=== PATIENT | female | born 1935 | race Caucasian/White ===

== ENCOUNTER 2016-02-17 08:52 | Outpatient (RCR) | payer MEDICARE, OTHER ==
[~2016-02-17 08:52] MED LIST: AC500T PO; ACET-2267 PO; ACHD5005 PO; ACID1GRA PO; ALPR0.2550; AMLO5TAB2 PO; ASP325T PO; ASP81CT PO; ASPI-84; ASPI-983 PO; ATOR40TA PO; ATOR40TA70 PO; AZIT250T5 PO; BETH25TA PO; CLIN300C3 PO; CLON0.5T3 PO; CLOP75TA; CLOP75TA PO; CLOP75TA28 PO; CLOP75TA69 PO; FERR325T24 PO; FRSM40T PO; FURO-125 PO; FURO20TA4 PO; FURO40TA4 PO; HCTZ12.5T PO; HYDR-3583 PO; HYDR-3857 PO; HYDR12.570; HYDR1TAB66 PO; KCL10CCR PO; KCL20TCR; LOSA50TA36 PO; METO50TA2 PO; METOPROLOL; METR500T PO; METR500T21 PO; MTP50T; MTP50T PO; ONDA-42 SL; PANT40TA3 PO; POTA10CA43 PO; POTA99TA7 PO; PRAV80TA2 PO; RANI150T11 PO; RANI150T90 PO; RANI75TA30 PO; RNT150T PO; ROSU20TA14; SERT25TA PO; SERT25TA5 PO; SIMV40TA4 PO; SIMVASTATIN; SUCR1ORA5 PO; SUCR1TAB PO; TRAM-42 PO; TRAM50TA2 PO
[2016-02-17 09:08] LABS: BASOPHILS % (AUTO) 0 % (0-10); EOSINOPHILS # (AUTO) 0.3 10^3/uL (0.0-0.3); EOSINOPHILS % (AUTO) 5 % (0-10); LYMPHOCYTES % (AUTO) 15 % (12-44); MEAN CORPUSCULAR HEMOGLOBIN 27 PG (25-34); MEAN CORPUSCULAR HGB CONC 32 G/DL (32-36); MEAN CORPUSCULAR VOLUME 83 FL (80-99); MEAN PLATELET VOLUME 9.4 FL (7.4-10.4); MONOCYTES # (AUTO) 0.7 X 10^3 (0.0-1.0); MONOCYTES % (AUTO) 10 % (0-12); NEUTROPHILS # (AUTO) 4.8 X 10^3 (1.8-7.8); NEUTROPHILS % (AUTO) 70 % (42-75); PLATELET COUNT 249 10^3/uL (130-400); RED BLOOD COUNT 4.32 10^6/uL (4.35-5.85); RED CELL DISTRIBUTION WIDTH 14.4 % (10.0-14.5); WHITE BLOOD COUNT 6.9 10^3/uL (4.3-11.0)
[2016-02-17 09:55] LABS: ALBUMIN 3.9 G/DL (3.2-4.5); BILIRUBIN,TOTAL 0.5 MG/DL (0.1-1.0); CALCIUM 9.4 MG/DL (8.5-10.1); CREATININE SERUM 1.26 MG/DL (0.60-1.30); POTASSIUM 5.1 MMOL/L (3.6-5.0); TOTAL PROTEIN 7.8 G/DL (6.4-8.2)
[2016-05-18] MEDS ORDERED: PANT40TA3 PO (11:39)
== END 2016-05-17 | disposition home or self-care (01) ==
LOC: ONC 08:52
PROVIDERS: ATTEND Internal Medicine Hematology & Oncology
DX: C18.0 Malignant neoplasm of cecum (principal); I10 Essential (primary) hypertension; I25.10 Atherosclerotic heart disease of native coronary artery without angina pectoris; E78.5 Hyperlipidemia, unspecified; Z79.899 Other long term (current) drug therapy
CPT/HCPCS: 36415; 80053; 82378; 85025; 99213

== ENCOUNTER 2016-05-18 05:50 | Outpatient (CLI) | payer MEDICARE, OTHER ==
[~2016-05-18] VITALS: Ht 157.5 cm; Wt 52.5 kg
[2016-05-18] MEDS ORDERED: PANT40TA3 PO (11:39)
== END 2016-05-18 11:44 ==
LOC: PREOP 05:50
PROVIDERS: ATTEND Surgery
DX: Z01.818 Encounter for other preprocedural examination (principal); R13.10 Dysphagia, unspecified; K22.2 Esophageal obstruction

== ENCOUNTER 2016-05-22 11:45 | Day surgery (SDC) | payer MEDICARE, OTHER ==
[~2016-05-22] VITALS: Ht 157.5 cm; Wt 52.5 kg
[2016-05-22] MEDS ORDERED: NS IV 500 ML 500 ML ONE (11:46)
--- NOTE | 2016-05-22 11:58 | Pre-Op Note & Conscious Sedat ---
Pre-Operative Progress Note H&P Reviewed The H&P was reviewed, patient examined and no changes noted. Date H&P Reviewed: May 22, 2016 Time H&P Reviewed: 11:58 Pre-Op Diagnosis: esophageal stricture Conscious Sedation Pre-Proced ASA Class: 2 Airway Mallampati Classification: ([place] appropriate class) I. II. III, IV Lungs Heart ASA score ASA 1: a normal healthy patient ASA 2: a patient with a mild systemic disease (mid diabetes, controlled hypertension, obesity ASA 3: a patient with a severe systemic disease that limits activity (angina , COPD, prior Myocardial infarction) ASA 4: a patient with an incapacitating disease that is a constant threat to life (CHF, renal failure) ASA 5: a moribund patient not expected to survive 24 hrs. (ruptured aneurysm) ASA 6: a declared brain patient whose organs are being harvested. For emergent operations, add the letter E after the classification Grade 2 Sedation Plan: Discussed options with patient/fam Note The patient is an appropriate candidate to undergo the planned procedure, sedation, and anesthesia. The patient immediately re-assessed prior to indication. JUDY ESCOBAR MD May 22, 2016 11:58 am
[2016-05-22] MEDS ORDERED: NS IV 500 ML 500 ML IV ONE (12:00)
[2016-05-22] MEDS ORDERED: FLUMAZENIL (ROMAZICON) 0.1 MG/ML 5 ML VIAL INJ PRN (12:00)
[2016-05-22] MEDS ORDERED: MIDAZOLAM 2 MG/2 ML (VERSED) VIAL IVP PRN (12:00)
[2016-05-22] MEDS ORDERED: NALOXONE 0.4 MG/ML 1 ML (NARCAN) VIAL IVP PRN (12:00)
[2016-05-22] MEDS ORDERED: fentaNYL INJECTION 100 MCG/2 ML AMP IVP PRN (12:00)
[2016-05-22 12:20] VITALS: BP 121/66
[2016-05-22] MEDS ORDERED: MIDAZOLAM 2 MG/2 ML (VERSED) VIAL ONE ×2 (12:25→12:26)
[2016-05-22] MEDS ORDERED: fentaNYL INJECTION 100 MCG/2 ML AMP ONE (12:26)
[2016-05-22] MEDS ORDERED: HURRICAINE EXT TUBE (BENZOCAINE) ONE (12:26)
--- NOTE | 2016-05-22 12:55 | Progress Note-Post Operative ---
Post-Operative Progess Note Pre-Operative Diagnosis esophageal stricture Post-Operative Diagnosis same Post-Op Procedure Note Date of Procedure: May 22, 2016 Name of Procedure: EGD with the balloon dilatation Anesthesia Type sedation JUDY ESCOBAR MD May 22, 2016 12:55 pm
--- NOTE | 2016-05-22 12:57 | Discharge Inst-Simple/Standard ---
Discharge Inst-Standard Discharge Medications New, Converted or Re-Newed RX: Other Patient Instructions/Follow Up Plan of Care/Instructions/FU: further follow-up if required Activity as Tolerated: Yes Discharge Diet: No Restrictions JUDY ESCOBAR MD May 22, 2016 12:57 pm
--- NOTE | 2016-05-22 13:10 | PROCEDURE REPORT ---
PROCEDURE PHYSICIAN: JUDY ESCOBAR DATE OF PROCEDURE: 05/22/2016 PROCEDURE: Upper GI endoscopy with balloon dilatation of esophageal stricture. SURGEON: Patric INDICATION FOR THE PROCEDURE: This lady is known to have a distal esophageal stricture requiring endoscopic balloon dilatation about 3 months ago. She returns today for further dilatation to optimize her symptom relief. Informed consent was obtained after reviewing the procedure in detail. DESCRIPTION OF PROCEDURE: She was placed in left lateral decubitus position and her vital signs were monitored. Conscious sedation was achieved using Versed and fentanyl. The flexible gastroscope was introduced down the esophagus, past stomach, into the proximal duodenum. FINDINGS: ESOPHAGUS: Quite tortuous with a smooth distal stricture. Previously noticed inflammation has resolved. The stricture was dilated to 18 mm with a balloon. Stomach and duodenum: Were normal. She tolerated the procedure well and was taken back to the nursing area in a stable condition. IMPRESSION: Balloon dilatation of esophageal stricture. Job ID: [id number] Dictated Date: 05/22/2016 12:55:18 Nurse First Assist Date: 05/22/2016 13:06:13 / neymar ERWIN
[2016-05-22 13:15] VITALS: BP 140/74
[2016-05-22] MEDS ORDERED: HURRICAINE EXT TUBE (BENZOCAINE) XX ONE (13:15)
[2016-05-22 13:45] VITALS: BP 138/74
[2016-05-22 14:05] VITALS: BP 138/74
== END 2016-05-22 14:05 | disposition home or self-care (01) ==
LOC: SDC 11:45
PROVIDERS: ATTEND Surgery
DX: K22.2 Esophageal obstruction (principal)

== ENCOUNTER 2016-08-28 12:31 | Outpatient (RCR) | payer MEDICARE, OTHER ==
[2016-06-06 13:33] LABS: BASOPHILS % (AUTO) 1 % (0-10); EOSINOPHILS # (AUTO) 0.4 10^3/uL (0.0-0.3); EOSINOPHILS % (AUTO) 6 % (0-10); LYMPHOCYTES # (AUTO) 1.2 X 10^3 (1.0-4.0); LYMPHOCYTES % (AUTO) 19 % (12-44); MEAN CORPUSCULAR HEMOGLOBIN 26 PG (25-34); MEAN CORPUSCULAR HGB CONC 32 G/DL (32-36); MEAN CORPUSCULAR VOLUME 82 FL (80-99); MEAN PLATELET VOLUME 9.6 FL (7.4-10.4); MONOCYTES # (AUTO) 0.6 X 10^3 (0.0-1.0); MONOCYTES % (AUTO) 9 % (0-12); NEUTROPHILS # (AUTO) 4.4 X 10^3 (1.8-7.8); NEUTROPHILS % (AUTO) 66 % (42-75); PLATELET COUNT 284 10^3/uL (130-400); RED BLOOD COUNT 4.67 10^6/uL (4.35-5.85); RED CELL DISTRIBUTION WIDTH 14.9 % (10.0-14.5); WHITE BLOOD COUNT 6.6 10^3/uL (4.3-11.0)
[2016-06-06 14:01] LABS: BILIRUBIN,TOTAL 0.5 MG/DL (0.1-1.0); CALCIUM 9.2 MG/DL (8.5-10.1); CREATININE SERUM 1.24 MG/DL (0.60-1.30); POTASSIUM 4.6 MMOL/L (3.6-5.0)
[2016-08-28 13:12] LABS: BASOPHILS # (AUTO) 0.1 10^3/uL (0.0-0.1); BASOPHILS % (AUTO) 1 % (0-10); EOSINOPHILS # (AUTO) 0.3 10^3/uL (0.0-0.3); EOSINOPHILS % (AUTO) 3 % (0-10); LYMPHOCYTES # (AUTO) 1.4 X 10^3 (1.0-4.0); LYMPHOCYTES % (AUTO) 15 % (12-44); MEAN CORPUSCULAR HEMOGLOBIN 27 PG (25-34); MEAN CORPUSCULAR HGB CONC 32 G/DL (32-36); MEAN CORPUSCULAR VOLUME 84 FL (80-99); MEAN PLATELET VOLUME 8.8 FL (7.4-10.4); MONOCYTES # (AUTO) 0.5 X 10^3 (0.0-1.0); MONOCYTES % (AUTO) 6 % (0-12); NEUTROPHILS # (AUTO) 6.6 X 10^3 (1.8-7.8); NEUTROPHILS % (AUTO) 75 % (42-75); PLATELET COUNT 417 10^3/uL (130-400); RED BLOOD COUNT 4.41 10^6/uL (4.35-5.85); RED CELL DISTRIBUTION WIDTH 14.7 % (10.0-14.5); WHITE BLOOD COUNT 8.8 10^3/uL (4.3-11.0)
[2016-08-28 14:06] LABS: ALBUMIN 3.6 G/DL (3.2-4.5); BILIRUBIN,TOTAL 0.3 MG/DL (0.1-1.0); CALCIUM 9.4 MG/DL (8.5-10.1); CREATININE SERUM 1.35 MG/DL (0.60-1.30); POTASSIUM 5.1 MMOL/L (3.6-5.0); TOTAL PROTEIN 8.1 G/DL (6.4-8.2)
== END 2016-09-04 | disposition home or self-care (01) ==
LOC: ONC 12:31
PROVIDERS: ATTEND Internal Medicine Hematology & Oncology
DX: C18.0 Malignant neoplasm of cecum (principal); I10 Essential (primary) hypertension; I25.10 Atherosclerotic heart disease of native coronary artery without angina pectoris; E78.5 Hyperlipidemia, unspecified; Z79.899 Other long term (current) drug therapy
CPT/HCPCS: 36415; 80053; 82378; 82728; 85025; 99213

== ENCOUNTER → 2016-09-05 | Outpatient (CLI) | payer MEDICARE, OTHER | LOC: PREOP 05:42 | PROVIDERS: ATTEND Surgery | DX: Z01.818 Encounter for other preprocedural examination (principal); C18.0 Malignant neoplasm of cecum ==

== ENCOUNTER 2016-09-07 07:58 | Day surgery (SDC) | payer MEDICARE, OTHER ==
[2016-09-07 08:00] VITALS: BP 127/60
[2016-09-07] MEDS ORDERED: FLUMAZENIL (ROMAZICON) 0.1 MG/ML 5 ML VIAL INJ PRN (08:15)
[2016-09-07] MEDS ORDERED: NALOXONE 0.4 MG/ML 1 ML (NARCAN) VIAL IVP PRN (08:15)
[2016-09-07] MEDS ORDERED: NS IV 500 ML 500 ML IV ONE (08:15)
[2016-09-07] MEDS ORDERED: NS IV 500 ML 500 ML ONE (09:06)
[2016-09-07] MEDS ORDERED: fentaNYL INJECTION 100 MCG/2 ML AMP ONE ×2 (10:07)
[2016-09-07] MEDS ORDERED: MIDAZOLAM 2 MG/2 ML (VERSED) VIAL ONE ×3 (10:07)
[2016-09-07] MEDS: fentaNYL INJECTION 100 MCG/2 ML AMP IVP PRN ×2 (10:25→10:29)
[2016-09-07] MEDS: MIDAZOLAM 2 MG/2 ML (VERSED) VIAL IVP PRN ×2 (10:28→10:31)
--- NOTE | 2016-09-07 10:48 | Conscious Sedation/ASA ---
Conscious Sedation Pre-Proced ASA Class: 2 Airway Mallampati Classification: ([place] appropriate class) I. II. III, IV Lungs Heart ASA score ASA 1: a normal healthy patient ASA 2: a patient with a mild systemic disease (mid diabetes, controlled hypertension, obesity ASA 3: a patient with a severe systemic disease that limits activity (angina , COPD, prior Myocardial infarction) ASA 4: a patient with an incapacitating disease that is a constant threat to life (CHF, renal failure) ASA 5: a moribund patient not expected to survive 24 hrs. (ruptured aneurysm) ASA 6: a declared brain patient whose organs are being harvested. For emergent operations, add the letter E after the classification Grade 1 Sedation Plan: Discussed options with patient/fam Note The patient is an appropriate candidate to undergo the planned procedure, sedation, and anesthesia. The patient immediately re-assessed prior to indication. JUDY ESCOBAR MD September 07, 2016 10:48 am
--- NOTE | 2016-09-07 10:49 | Endoscopy Procedure Report ---
Endoscopy Report Date: September 07, 2016 Preoperative Diagnosis: history of colon cancer Study Performed: Colonoscopy Procedure Instrument: Colonoscope Endo Procedure/Findings Findings 1.: Diverticulosis Recommendations: Recommendations: 1.: Colonoscopy in 2 years Copy Copies To 1: EDGAR ANNE DO Copies To 2: CHRISTA WHITAKER XAVIER M MD September 07, 2016 10:49 am
--- NOTE | 2016-09-07 10:50 | Discharge Inst-Simple/Standard ---
Discharge Inst-Standard Discharge Medications New, Converted or Re-Newed RX: Other Patient Instructions/Follow Up Plan of Care/Instructions/FU: repeat colonoscopy in 2 years Activity as Tolerated: Yes Discharge Diet: No Restrictions JUDY ESCOBAR MD September 07, 2016 10:50 am
[2016-09-07 11:05] VITALS: BP 123/58
[2016-09-07 11:35] VITALS: BP 135/68
--- NOTE | 2016-09-08 05:21 | OPERATIVE REPORT ---
DATE OF SERVICE: 09/07/2016 PROCEDURE: Surveillance colonoscopy SURGEON: Judy Escobar MD INDICATION OF PROCEDURE: This lady had undergone laparoscopic right hemicolectomy to manage carcinoma of the cecum in 07/2015. She came in for surveillance colonoscopy. Informed consent was obtained after reviewing the procedure in detail. DESCRIPTION OF PROCEDURE: She was placed in left lateral decubitus position and her vital signs were monitored. Conscious sedation was achieved using Versed and fentanyl. Digital rectal examination was unremarkable. The colonoscope was then introduced in the rectum and advanced to the ileo-colic anastomosis. The scope was withdrawn slowly and the mucus examined in a systemic fashion. FINDINGS: 1. Internal hemorrhoids. 2. Sigmoid diverticulosis. No recurrent polyps were found. She tolerated the procedure well and was taken back to the nursing area in a stable condition. IMPRESSION: Previous right colon carcinoma. Negative colonoscopy. Recommend examination in two years. Job ID: [id number] DocumentID: [id number] Dictated Date: 09/07/2016 10:39:19 Floor Cleaner Date: 09/08/2016 04:46:09 Dictated By: JUDY ESCOBAR MD MTDD
== END 2016-09-07 11:50 | disposition home or self-care (01) ==
LOC: ENDO 07:58
PROVIDERS: ATTEND Surgery
DX: C18.0 Malignant neoplasm of cecum (principal); K57.30 Diverticulosis of large intestine without perforation or abscess without bleeding; K64.8 Other hemorrhoids

== ENCOUNTER → 2016-11-14 | Outpatient (CLI) | payer MEDICARE, OTHER ==
--- NOTE | 2016-11-14 14:29 | Diagnostic Imaging Report ---
INDICATION: Wheeze. Coughing. History of pneumonia. COMPARISON: 10/02/2015. FINDINGS: Frontal and lateral radiographic views of the chest were obtained. Lungs are hyperinflated with flattening of the hemidiaphragms. There are prominent interstitial markings, bilaterally. Overall appearance however is stable compared to 10/02/2015. There is no new alveolar consolidation, large effusion, nor pneumothorax. Cardiac silhouette and pulmonary vasculature within normal limits. There is aortic atherosclerosis. Bony structures show no gross acute abnormalities. IMPRESSION: 1. Thickening of the interstitium, which is likely on a chronic senescent basis. 2. Background of COPD. 3. Otherwise, no acute cardiopulmonary process. Dictated by: Dictated on workstation # [id number]
== END ==
LOC: RAD 13:42
PROVIDERS: ATTEND Family Medicine
DX: J44.9 Chronic obstructive pulmonary disease, unspecified (principal); Z87.01 Personal history of pneumonia (recurrent)
CPT/HCPCS: 71020

== ENCOUNTER 2016-11-27 14:05 | Outpatient (RCR) | payer MEDICARE, OTHER ==
[2016-11-27 14:38] LABS: BASOPHILS % (AUTO) 0 % (0-10); EOSINOPHILS # (AUTO) 0.3 10^3/uL (0.0-0.3); EOSINOPHILS % (AUTO) 4 % (0-10); LYMPHOCYTES # (AUTO) 1.1 X 10^3 (1.0-4.0); LYMPHOCYTES % (AUTO) 17 % (12-44); MEAN CORPUSCULAR HEMOGLOBIN 28 PG (25-34); MEAN CORPUSCULAR HGB CONC 33 G/DL (32-36); MEAN CORPUSCULAR VOLUME 85 FL (80-99); MEAN PLATELET VOLUME 9.1 FL (7.4-10.4); MONOCYTES # (AUTO) 0.5 X 10^3 (0.0-1.0); MONOCYTES % (AUTO) 7 % (0-12); NEUTROPHILS # (AUTO) 4.4 X 10^3 (1.8-7.8); NEUTROPHILS % (AUTO) 71 % (42-75); PLATELET COUNT 251 10^3/uL (130-400); RED BLOOD COUNT 4.32 10^6/uL (4.35-5.85); RED CELL DISTRIBUTION WIDTH 14.5 % (10.0-14.5); WHITE BLOOD COUNT 6.2 10^3/uL (4.3-11.0)
[2016-11-27 15:18] LABS: ALBUMIN 3.6 GM/DL (3.2-4.5); BILIRUBIN,TOTAL 0.4 MG/DL (0.1-1.0); CALCIUM 8.7 MG/DL (8.5-10.1); CREATININE SERUM 1.14 MG/DL (0.60-1.30); POTASSIUM 4.2 MMOL/L (3.6-5.0); TOTAL PROTEIN 7.4 GM/DL (6.4-8.2)
== END 2017-02-03 | disposition home or self-care (01) ==
LOC: ONC 14:05
PROVIDERS: ATTEND Internal Medicine Hematology & Oncology
DX: C18.0 Malignant neoplasm of cecum (principal); I10 Essential (primary) hypertension; I25.10 Atherosclerotic heart disease of native coronary artery without angina pectoris; E78.5 Hyperlipidemia, unspecified; Z79.899 Other long term (current) drug therapy
CPT/HCPCS: 36415; 80053; 82378; 82728; 85025; 99213

== ENCOUNTER 2017-02-19 13:00 | Outpatient (RCR) | payer MEDICARE, OTHER ==
[~2017-02-19 13:00] MED LIST changes: +AZIT250T12 PO; -AZIT250T5 PO; +METO50TA15 PO; -METO50TA2 PO
[2017-02-19 13:28] LABS: BASOPHILS % (AUTO) 0 % (0-10); EOSINOPHILS # (AUTO) 0.3 10^3/uL (0.0-0.3); EOSINOPHILS % (AUTO) 5 % (0-10); HEMATOCRIT 40 % (35-52); HEMOGLOBIN 13.1 G/DL (11.5-16.0); LYMPHOCYTES # (AUTO) 1.3 X 10^3 (1.0-4.0); LYMPHOCYTES % (AUTO) 18 % (12-44); MEAN CORPUSCULAR HEMOGLOBIN 28 PG (25-34); MEAN CORPUSCULAR HGB CONC 33 G/DL (32-36); MEAN CORPUSCULAR VOLUME 86 FL (80-99); MEAN PLATELET VOLUME 9.4 FL (7.4-10.4); MONOCYTES # (AUTO) 0.5 X 10^3 (0.0-1.0); MONOCYTES % (AUTO) 7 % (0-12); NEUTROPHILS # (AUTO) 5.1 X 10^3 (1.8-7.8); NEUTROPHILS % (AUTO) 70 % (42-75); PLATELET COUNT 257 10^3/uL (130-400); RED BLOOD COUNT 4.64 10^6/uL (4.35-5.85); RED CELL DISTRIBUTION WIDTH 13.3 % (10.0-14.5); WHITE BLOOD COUNT 7.3 10^3/uL (4.3-11.0)
[2017-02-19 13:57] LABS: ALBUMIN 3.8 GM/DL (3.2-4.5); BILIRUBIN,TOTAL 0.7 MG/DL (0.1-1.0); CALCIUM 9.6 MG/DL (8.5-10.1); CREATININE SERUM 1.13 MG/DL (0.60-1.30); POTASSIUM 3.5 MMOL/L (3.6-5.0); TOTAL PROTEIN 8.2 GM/DL (6.4-8.2)
== END 2017-05-20 | disposition home or self-care (01) ==
LOC: ONC 13:00
PROVIDERS: ATTEND Internal Medicine Hematology & Oncology
DX: C18.0 Malignant neoplasm of cecum (principal); I12.9 Hypertensive chronic kidney disease with stage 1 through stage 4 chronic kidney disease, or unspecified chronic kidney disease; N18.3 Chronic kidney disease, stage 3 (moderate); I25.10 Atherosclerotic heart disease of native coronary artery without angina pectoris; E78.5 Hyperlipidemia, unspecified; R53.83 Other fatigue; Z79.899 Other long term (current) drug therapy; Z79.02 Long term (current) use of antithrombotics/antiplatelets
CPT/HCPCS: 36415; 80053; 82378; 82728; 85025; 99213

== ENCOUNTER 2017-09-11 09:31 | Outpatient (RCR) | payer MEDICARE, OTHER ==
[~2017-09-11 09:31] MED LIST changes: +CLON0.5T13 PO
[2017-09-11 10:01] LABS: BASOPHILS % (AUTO) 0 % (0-10); EOSINOPHILS # (AUTO) 0.3 10^3/uL (0.0-0.3); EOSINOPHILS % (AUTO) 4 % (0-10); HEMATOCRIT 39 % (35-52); HEMOGLOBIN 13.2 G/DL (11.5-16.0); LYMPHOCYTES # (AUTO) 1.2 X 10^3 (1.0-4.0); LYMPHOCYTES % (AUTO) 15 % (12-44); MEAN CORPUSCULAR HEMOGLOBIN 28 PG (25-34); MEAN CORPUSCULAR HGB CONC 34 G/DL (32-36); MEAN CORPUSCULAR VOLUME 84 FL (80-99); MEAN PLATELET VOLUME 9.3 FL (7.4-10.4); MONOCYTES # (AUTO) 0.7 X 10^3 (0.0-1.0); MONOCYTES % (AUTO) 9 % (0-12); NEUTROPHILS # (AUTO) 5.7 X 10^3 (1.8-7.8); NEUTROPHILS % (AUTO) 72 % (42-75); PLATELET COUNT 245 10^3/uL (130-400); RED BLOOD COUNT 4.66 10^6/uL (4.35-5.85); RED CELL DISTRIBUTION WIDTH 14.1 % (10.0-14.5); WHITE BLOOD COUNT 7.9 10^3/uL (4.3-11.0)
[2017-09-11 10:27] LABS: ALBUMIN 3.9 GM/DL (3.2-4.5); BILIRUBIN,TOTAL 0.5 MG/DL (0.1-1.0); CALCIUM 9.5 MG/DL (8.5-10.1); CREATININE SERUM 1.51 MG/DL (0.60-1.30); POTASSIUM 4.5 MMOL/L (3.6-5.0); TOTAL PROTEIN 8.2 GM/DL (6.4-8.2)
== END 2017-12-10 | disposition home or self-care (01) ==
LOC: ONC 09:31
PROVIDERS: ATTEND Internal Medicine Hematology & Oncology
DX: C18.0 Malignant neoplasm of cecum (principal); I12.9 Hypertensive chronic kidney disease with stage 1 through stage 4 chronic kidney disease, or unspecified chronic kidney disease; N18.3 Chronic kidney disease, stage 3 (moderate); I25.10 Atherosclerotic heart disease of native coronary artery without angina pectoris; E78.5 Hyperlipidemia, unspecified; R53.83 Other fatigue; Z79.899 Other long term (current) drug therapy; Z79.02 Long term (current) use of antithrombotics/antiplatelets
CPT/HCPCS: 36415; 80053; 82378; 82728; 85025; 99213

== ENCOUNTER 2018-01-22 13:19 | Observation (INO) | payer MEDICARE, OTHER ==
[~2018-01-22] VITALS: Ht 152.4 cm; Wt 54.4 kg
[~2018-01-22 13:19] MED LIST changes: -LOSA50TA36 PO; +LOSA50TA7 PO
[2018-01-22 13:39] LABS: BASOPHILS % (AUTO) 1 % (0-10); EOSINOPHILS # (AUTO) 0.3 10^3/uL (0.0-0.3); EOSINOPHILS % (AUTO) 4 % (0-10); HEMATOCRIT 41 % (35-52); HEMOGLOBIN 14.1 G/DL (11.5-16.0); LYMPHOCYTES # (AUTO) 1.7 X 10^3 (1.0-4.0); LYMPHOCYTES % (AUTO) 23 % (12-44); MEAN CORPUSCULAR HEMOGLOBIN 29 PG (25-34); MEAN CORPUSCULAR HGB CONC 35 G/DL (32-36); MEAN CORPUSCULAR VOLUME 84 FL (80-99); MEAN PLATELET VOLUME 9.5 FL (7.4-10.4); MONOCYTES # (AUTO) 0.6 X 10^3 (0.0-1.0); MONOCYTES % (AUTO) 8 % (0-12); NEUTROPHILS # (AUTO) 4.8 X 10^3 (1.8-7.8); NEUTROPHILS % (AUTO) 65 % (42-75); PLATELET COUNT 238 10^3/uL (130-400); RED BLOOD COUNT 4.83 10^6/uL (4.35-5.85); RED CELL DISTRIBUTION WIDTH 13.4 % (10.0-14.5); WHITE BLOOD COUNT 7.4 10^3/uL (4.3-11.0)
[2018-01-22] MEDS ORDERED: ASPIRIN 81 MG CHEW (CHILDREN'S ASA) PO ONE (13:45)
[2018-01-22 13:53] LABS: INR 1.1 (0.8-1.4)
[2018-01-22 13:58] LABS: ALANINE AMINOTRANSFERASE 18 U/L (0-55); ALBUMIN 4.2 GM/DL (3.2-4.5); ALKALINE PHOSPHATASE 78 U/L (40-136); BILIRUBIN,TOTAL 0.7 MG/DL (0.1-1.0); BUN/CREATININE RATIO 22; CALCIUM 9.9 MG/DL (8.5-10.1); CARBON DIOXIDE 26 MMOL/L (21-32); CHLORIDE 104 MMOL/L (98-107); CREATININE SERUM 1.15 MG/DL (0.60-1.30); GFR ESTIMATED 45; GLUCOSE 86 MG/DL (70-105); SODIUM 139 MMOL/L (135-145); TOTAL PROTEIN 8.6 GM/DL (6.4-8.2)
[2018-01-22 14:04] LABS: MYOGLOBIN SERUM 92.3 NG/ML (10.0-92.0)
--- NOTE | 2018-01-22 14:09 | Diagnostic Imaging Report ---
INDICATION: Intermittent chest pain. Time of exam 2:01 PM Correlation is made with prior study from 11/14/2016. The heart size is stable. Lungs are clear. No infiltrate or failure is seen. No effusion or pneumothorax is detected. IMPRESSION: No acute cardiopulmonary process is detected. Dictated by: Dictated on workstation # [id number]
--- NOTE | 2018-01-22 14:19 | ED Chest Pain ---
General Chief Complaint: Chest Pain Stated Complaint: CHEST PAIN;NECK PAIN Nursing Triage Note: PT AMB TO ROOM #2 W/O DIFFICULTY. A&OX4. CO INTERMITTENT CHEST PAIN WITH TWO EPISODES EXPERIENCES WITHIN TWO DAYS. REPORTS SHE HAS BEEN EXPERIENCING SAME TYPE OF CHEST PAIN FOR PAST TWO WEEKS. KENZIE REPORTS EPISODES ARE INCREASING. PT REPORTS SHE WAS AT OFFICE ON THIS DAY WHEN SHE BEGAN TO HAVE MEDIAL STERNUM CHEST PAIN, NAUSEA, AND DIAPHORESIS AND REFERRED TO THIS ED. UPON ARRIVAL TO ED PT DENIES ANY CHEST PAIN OR DISCOMOFRT. DENIES SOA. Nursing Sepsis Screen: No Definite Risk Source: patient, old records, other (Dr. Anne) Exam Limitations: no limitations History of Present Illness Date Seen by Provider: Jan 22, 2018 Time Seen by Provider: 13:20 Initial Comments This 82-year-old woman with known coronary artery disease presents to the emergency room as a referral from Dr. Anne's office. Patient reports intermittent chest pain for the past few weeks with increasing intensity. The last 2 days she has had rather intense episodes of chest pain. Her most recent episode occurred while at Dr. Anne's office earlier today. She states the pain starts in her left neck and radiates down into her left chest. It is a "pressure and sticking pain." Patient had associated nausea. She has history of coronary artery disease with numerous stents. Her nail machine operator is Dr. Harris. She denies any pain since arriving at the emergency room. Allergies and Home Medications Allergies Coded Allergies: tramadol (Verified Allergy, Intermediate, RASH, Pt has received Lortab & Morphine in the past, 01/22/18) hydralazine (Verified Allergy, Unknown, 01/22/18) lidocaine (Verified Allergy, Unknown, 02/01/09) penicillin G (Verified Allergy, Unknown, 01/08/09) propoxyphene (Verified Allergy, Unknown, 01/08/09) Home Medications Acetaminophen 500 Mg Tablet, 1,000 MG PO Q6H PRN for PAIN-MILD, (Reported) Amlodipine Besylate 5 Mg Tablet, 5 MG PO DAILY, (Reported) Atorvastatin Calcium 40 Mg Tablet, 40 MG PO HS, (Reported) Clonazepam 0.5 Mg Tablet, 0.5 MG PO HS, (Reported) Clopidogrel Bisulfate 75 Mg Tablet, 75 MG PO DAILY, (Reported) Ferrous Sulfate 325 Mg Tablet, 325 MG PO DAILY, (Reported) Furosemide 20 Mg Tablet, 20 MG PO Q48H, (Reported) Loperamide HCl 2 Mg Capsule, 2 MG PO UD PRN for DIARRHEA, (Reported) Pantoprazole Sodium 40 Mg Tablet.dr, 40 MG PO DAILY, (Reported) Sertraline HCl 25 Mg Tablet, 25 MG PO DAILY, (Reported) Patient Home Medication List Home Medication List Reviewed: Yes Review of Systems Review of Systems Constitutional: no symptoms reported EENTM: No Symptoms Reported Respiratory: No Symptoms Reported Cardiovascular: See HPI Gastrointestinal: See HPI Genitourinary: No Symptoms Reported Musculoskeletal: no symptoms reported Skin: no symptoms reported Psychiatric/Neurological: No Symptoms Reported Endocrine: No Symptoms Reported Hematologic/Lymphatic: No Symptoms Reported Past Ltszulv-Sztred-Vkomzh Hx Patient Social History Alcohol Use: Denies Use Recreational Drug Use: No Smoking Status: Former Smoker Former Smoker, Quit: Mar 23, 1990 2nd Hand Smoke Exposure: Yes Recent Foreign Travel: No Contact w/Someone Who Travel: No Recent Infectious Disease Expo: No Recent Hopitalizations: No Physical Abuse: No Sexual Abuse: No Immunizations Up To Date Tetanus Booster (TDap): More than 5yrs Date of Pneumonia Vaccine: Jul 03, 2016 Date of Influenza Vaccine: Mar 07, 2016 Seasonal Allergies Seasonal Allergies: Yes (MILD) Past Medical History Surgeries: Yes (Gallbladder and appy, LUMPECTOMY, EXC. LESION W/SKIN GRAFT, COLON RESECTION) Appendectomy, Breast, Coronary Stent, Gallbladder Respiratory: No (COPD) COPD Currently Using CPAP: No Cardiac: Yes (stents) Coronary Artery Disease, Heart Attack, High Cholesterol, Hypertension, Peripheral Vascular (Carotid stenosis) Neurological: No (BECOMING FORGETFUL) Reproductive Disorders: No Female Reproductive Disorders: Denies Sexually Transmitted Disease: No HIV/AIDS: No Genitourinary: Yes Renal Failure (Chronic kidney disease, history of contrast nephropathy) Gastrointestinal: Yes (DYSPHAGIA) Gastroesophageal Reflux, Hiatal Hernia, Ulcer Musculoskeletal: Yes (ARTHRITIS) Osteoporosis, Arthritis Endocrine: No Cataract Loss of Vision: Denies Hearing Impairment: Denies Cancer: Yes (CECAL, COLON CA REMOVED) Skin, Colon What Type of Treatment Did You: Surgical Intervention Psychosocial: Yes (MILD) Anxiety, Depression Integumentary: No Blood Disorders: Yes (HX OF ANEMIA) Adverse Reaction/Blood Tranf: No (HAS HAD BLOOD WITH NO REACTION) Family Medical History Completed stroke 19 FATHER Hypertension 19 MOTHER Myocardial infarction 19 MOTHER G8 SISTER No Pertinent Family Hx Physical Exam Vital Signs Vital Signs - First Documented Capillary Refill : Less Than 3 Seconds Height, Weight, BMI Height: 5'0" Weight: 120lbs. 13.0oz. [id number]; 21.2 BMI Method:Stated General Appearance: No Apparent Distress, WD/WN HEENT: PERRL/EOMI, Normal ENT Inspection Neck: Normal Inspection Respiratory: Chest Non Tender, Lungs Clear, Normal Breath Sounds, No Accessory Muscle Use, No Respiratory Distress Cardiovascular: Regular Rate, Rhythm, No Edema, Normal Peripheral Pulses Gastrointestinal: Normal Bowel Sounds, Non Tender, Soft Extremity: Normal Capillary Refill, Normal Inspection, No Calf Tenderness, No Pedal Edema Neurologic/Psychiatric: Alert, Oriented x3, No Motor/Sensory Deficits, Normal Mood/Affect, rough and truing machine operator II-XII Norm as Tested Skin: Normal Color, Warm/Dry Progress/Results/Core Measures Results/Orders Lab Results Laboratory Tests Test 01/22/18 13:30 Range/Units White Blood Count 7.4 4.3-11.0 10^3/uL Red Blood Count 4.83 4.35-5.85 10^6/uL Hemoglobin 14.1 11.5-16.0 G/DL Hematocrit 41 35-52 % Mean Corpuscular Volume 84 80-99 FL Mean Corpuscular Hemoglobin 29 25-34 PG Mean Corpuscular Hemoglobin Concent 35 32-36 G/DL Red Cell Distribution Width 13.4 10.0-14.5 % Platelet Count 238 130-400 10^3/uL Mean Platelet Volume 9.5 7.4-10.4 FL Neutrophils (%) (Auto) 65 42-75 % Lymphocytes (%) (Auto) 23 12-44 % Monocytes (%) (Auto) 8 0-12 % Eosinophils (%) (Auto) 4 0-10 % Basophils (%) (Auto) 1 0-10 % Neutrophils # (Auto) 4.8 1.8-7.8 X 10^3 Lymphocytes # (Auto) 1.7 1.0-4.0 X 10^3 Monocytes # (Auto) 0.6 0.0-1.0 X 10^3 Eosinophils # (Auto) 0.3 0.0-0.3 10^3/uL Basophils # (Auto) 0.0 0.0-0.1 10^3/uL Prothrombin Time 14.0 12.2-14.7 SEC INR Comment 1.1 0.8-1.4 Activated Partial Thromboplast Time 35 24-35 SEC Sodium Level 139 135-145 MMOL/L Potassium Level 4.0 3.6-5.0 MMOL/L Chloride Level 104 98-107 MMOL/L Carbon Dioxide Level 26 21-32 MMOL/L Anion Gap 9 5-14 MMOL/L Blood Urea Nitrogen 25 H 7-18 MG/DL Creatinine 1.15 0.60-1.30 MG/DL Estimat Glomerular Filtration Rate 45 BUN/Creatinine Ratio 22 Glucose Level 86 70-105 MG/DL Calcium Level 9.9 8.5-10.1 MG/DL Corrected Calcium 9.7 8.5-10.1 MG/DL Magnesium Level 2.0 1.8-2.4 MG/DL Total Bilirubin 0.7 0.1-1.0 MG/DL Aspartate Amino Transf (AST/SGOT) 23 5-34 U/L Alanine Aminotransferase (ALT/SGPT) 18 0-55 U/L Alkaline Phosphatase 78 40-136 U/L Myoglobin 92.3 H 10.0-92.0 NG/ML Troponin I < 0.30 <0.30 NG/ML Total Protein 8.6 H 6.4-8.2 GM/DL Albumin 4.2 3.2-4.5 GM/DL My Orders Orders - DAVINA EMERSON MD Cbc With Automated Diff (01/22/18 13:23) Magnesium (01/22/18 13:23) Chest 1 View, Ap/Pa Only (01/22/18 13:23) Cardiac Profile 1 (01/22/18 13:23) Comprehensive Metabolic Panel (01/22/18 13:23) Myoglobin Serum (01/22/18 13:23) Protime With Inr (01/22/18 13:23) Partial Thromboplastin Time (01/22/18 13:23) O2 (01/22/18 13:23) Monitor-Rhythm Ecg Trace Only (01/22/18 13:23) Lipid Panel (01/23/18 06:00) Saline Lock/Iv-Start (01/22/18 13:23) Aspirin Chewable Tablet (Baby Aspirin Ch (01/22/18 13:45) Medications Given in ED Current Medications Medications Dose Ordered Sig/Jorge Luis Route Start Time Stop Time Status Last Admin Dose Admin Aspirin 324 mg ONCE ONCE PO 01/22/18 13:45 01/22/18 13:46 DC 01/22/18 13:52 324 MG Vital Signs/I&O 01/22/18 01/22/18 13:21 13:21 Temp 97.9 Pulse 72 Resp 18 B/P (MAP) 171/85 (113) Pulse Ox 97 O2 Delivery Room Air Room Air Blood Pressure Mean: 113 Progress Progress Note : Progress Note Patient received aspirin per protocol. Workup was unremarkable. Patient remained free of chest pain throughout her ER stay. Dr. Harris recommended admission. Patient is agreeable. Initial ECG Impression Date: Jan 22, 2018 Initial ECG Impression Time: 13:25 Initial ECG Rate: 71 Comment Sinus rhythm with no acute ST elevation or depression. Chronic left bundle branch block unchanged from prior. Diagnostic Imaging Diagonstic Imaging: Xray Plain Films/CT/US/NM/MRI: chest Comments Chest x-ray viewed by me and report reviewed. See report below: NAME: PEDRO VERGARA I [facility] REC#: [id number] PT STATUS: REG ER : 1935 PHYSICIAN: DAVNIA EMERSON MD ADMIT DATE: 01/22/18/ER Draft Date of Exam:01/22/18 CHEST 1 VIEW, AP/PA ONLY INDICATION: Intermittent chest pain. Time of exam 2:01 PM Correlation is made with prior study from 11/14/2016. The heart size is stable. Lungs are clear. No infiltrate or failure is seen. No effusion or pneumothorax is detected. IMPRESSION: No acute cardiopulmonary process is detected. Dictated on workstation # [id number] Dict: 01/22/18 1405 Trans: 01/22/18 1409 [facility] [id number] Interpreted by: GABY ALSTON MD Departure Communication (Admissions) Time/Spoke to Admitting Phy: 14:20 Dr. Anne Time/Spoke to Consulting Phy: 14:19 Dr. Harris Impression Primary Impression: CAD (coronary artery disease) Qualified Codes: I25.10 - Atherosclerotic heart disease of [place] coronary artery without angina pectoris Additional Impression: Chest pain Qualified Codes: R07.9 - Chest pain, unspecified Disposition: 20 Condition: Improved Admissions Decision to Admit Reason: Admit from ER (General) Decision to Admit/Date: Jan 22, 2018 Time/Decision to Admit Time: 14:19 Departure-Patient Inst. Referrals: EDGAR ANNE DO (PCP/Family) Primary Care Physician DAVINA EMERSON MD Jan 22, 2018 14:19
--- NOTE | 2018-01-22 14:44 | Consultation-Cardiology ---
HPI-Cardiology Cardiology Consultation: Date of Consultation 01/22/18 Time Seen by Provider: 14:45 Date of Admission 01-22-18 Attending Physician Admitting Physician Kwesi Escobar DO Consulting Physician Brant Harris MD HPI: Chief Complaint: Chest pain Ms. Vergara is an 82 year old female who has been sent to the ED by her PCP with c/o CP. Her daughter is at the bedside. She reports for the last several weeks she has had episodes of left sided neck pain. She reports she then has pain in the left side of her chest which is localized and does not radiate. It lasts for 10-15 minutes. She describes it as a sharp sticking pain. The discomfort occurs without r/t activity or emotional stress. She does not have the pain every day. The most recent episode was this morning while she was sitting in a chair at Dr. Escobar's office. No c/o palpitations, syncope or near syncope. She reports she felt nauseated with the episode of chest discomfort she had yesterday evening. She denies any LE edema. No n/v/d. No c /o fever or chills. Review of Systems-Cardiology Review of Systems Constitutional: No chills, No fever, No malaise Eyes: No vision change Ears/Nose/Throat: No epistaxis, No recent hearing loss Respiratory: As described under HPI Cardiovascular: As described under HPI Gastrointestinal: As described under HPI Genitourinary: No dysuria, No hematuria Musculoskeletal: no symptoms reported Skin: No rash, No ulcerations Psychiatric/Neurological: No anxiety, No depression, No seizure, No focal weakness, No syncope Hematologic: No bleeding abnormalities KSU-Hxasce-Taqmav Hx Patient Social History Alcohol Use: Denies Use Recreational Drug Use: No Smoking Status: Former Smoker Former smoker/When Quit: Apr 03, 1991 2nd Hand Smoke Exposure: Yes Recent Foreign Travel: No Recent Infectious Disease Expo: No Hospitalization with Isolation: Denies Immunizations Up To Date Tetanus Booster (TDap): More than 5yrs Date of Pneumonia Vaccine: Jul 03, 2016 Date of Influenza Vaccine: Mar 07, 2016 Past Medical History PMH As described under Assessment. Family Medical History Family Medical History: Reports fam h/o early CAD (sister) Family History: Completed stroke 19 FATHER Hypertension 19 MOTHER Myocardial infarction 19 MOTHER G8 SISTER Allergies and Home Medications Allergies Coded Allergies: tramadol (Verified Allergy, Intermediate, RASH, Pt has received Lortab & Morphine in the past, 01/22/18) hydralazine (Verified Allergy, Unknown, 01/22/18) lidocaine (Verified Allergy, Unknown, 02/01/09) penicillin G (Verified Allergy, Unknown, 01/08/09) propoxyphene (Verified Allergy, Unknown, 01/08/09) Home Medications Acetaminophen 500 Mg Tablet, 1,000 MG PO Q8H PRN for PAIN, (Reported) Amlodipine Besylate 5 Mg Tablet, 2.5 MG PO DAILY, (Reported) TAKES 1/2 OF A (5 MG) TABLET Atorvastatin Calcium 40 Mg Tablet, 40 MG PO HS, (Reported) Clonazepam 0.5 Mg Tablet, 0.5 MG PO HS, (Reported) Clopidogrel Bisulfate 75 Mg Tablet, 75 MG PO DAILY, (Reported) Furosemide 20 Mg Tablet, 20 MG PO EVERY OTHER DAY, (Reported) Metoprolol Tartrate 50 Mg Tablet, 50 MG PO BID, (Reported) Pantoprazole Sodium 40 Mg Tablet.dr, 40 MG PO DAILY, (Reported) Sertraline HCl 25 Mg Tablet, 25 MG PO DAILY, (Reported) Sucralfate 1 Gm/10 Ml Oral.susp, 1 GM PO QID Prescribed by: ISAURA MYERS NWW on 09/23/15 1047 Physical Exam-Cardiology Physical Exam Vital Signs/I&O 01/22/18 01/22/18 01/22/18 13:21 13:21 15:16 Temp 97.9 97.9 Pulse 72 62 Resp 18 18 B/P (MAP) 171/85 (113) 159/72 (113) Pulse Ox 97 96 O2 Delivery Room Air Room Air Room Air Capillary Refill : Less Than 3 Seconds Constitutional: AAO x 3, well-developed, well-nourished HEENT: PERRL, hearing is well preserved Neck: carotid bruit, carotid pulses are 2 + bilaterally Respiratory: No accessory muscle use, No respiratory distress; chest expansion is symmetric, chest is bilaterally symmetric, lungs clear to auscultation Cardiovascular: regular rate-rhythm; No JVD; S1 and S2 Gastrointestinal: No tender; soft, round, audible bowel sounds Rectal: deferred Extremities: no lower extremity edema bilateral Neurologic/Psychiatric: grossly intact, power is 5/5 both on sides Skin: No rash, No ulcerations Data Review Labs Laboratory Tests 01/22/18 13:30: White Blood Count 7.4, Red Blood Count 4.83, Hemoglobin 14.1, Hematocrit 41, Mean Corpuscular Volume 84, Mean Corpuscular Hemoglobin 29, Mean Corpuscular Hemoglobin Concent 35, Red Cell Distribution Width 13.4, Platelet Count 238, Mean Platelet Volume 9.5, Neutrophils (%) (Auto) 65, Lymphocytes (%) (Auto) 23, Monocytes (%) (Auto) 8, Eosinophils (%) (Auto) 4, Basophils (%) (Auto) 1, Neutrophils # (Auto) 4.8, Lymphocytes # (Auto) 1.7, Monocytes # (Auto) 0.6, Eosinophils # (Auto) 0.3, Basophils # (Auto) 0.0, Prothrombin Time 14.0, INR Comment 1.1, Activated Partial Thromboplast Time 35, Sodium Level 139, Potassium Level 4.0, Chloride Level 104, Carbon Dioxide Level 26, Anion Gap 9, Blood Urea Nitrogen 25H, Creatinine 1.15, Estimat Glomerular Filtration Rate 45 , BUN/Creatinine Ratio 22, Glucose Level 86, Calcium Level 9.9, Corrected Calcium 9.7, Magnesium Level 2.0, Total Bilirubin 0.7, Aspartate Amino Transf ( AST/SGOT) 23, Alanine Aminotransferase (ALT/SGPT) 18, Alkaline Phosphatase 78, Myoglobin 92.3H, Troponin I < 0.30, Total Protein 8.6H, Albumin 4.2 Radiology NAME: PEDRO VERGARA I [facility] REC#: [id number] PT STATUS: REG ER : 1935 PHYSICIAN: DAVINA EMERSON MD ADMIT DATE: 01/22/18/ER Draft Date of Exam:01/22/18 CHEST 1 VIEW, AP/PA ONLY INDICATION: Intermittent chest pain. Time of exam 2:01 PM Correlation is made with prior study from 11/14/2016. The heart size is stable. Lungs are clear. No infiltrate or failure is seen. No effusion or pneumothorax is detected. IMPRESSION: No acute cardiopulmonary process is detected. Dictated on workstation # [id number] Dict: 01/22/18 1405 Trans: 01/22/18 1409 [facility] [id number] Interpreted by: GABY ALSTON MD Electronically signed by: A/P-Cardiology Assessment/Admission Diagnosis Chest pain of undetermined etiology Coronary artery disease. Last cardiac cath of 09-16-15 showed Patent stents in the mid left anterior descending artery known to be Promus 2.5 x 15 mm placed several years ago and Promus 2.25 x 12 mm placed on 09/14/2015. The mid left anterior descending artery has moderate disease. The left circumflex artery has mild disease. The right coronary artery has a patent stent known to be vision 4 x 28 mm stent in the mid right coronary artery placed several years ago. The right coronary artery has diffuse, moderate disease. Repeat cath of 09/16/15 for chest discomfort showed stable cardiac status and subsequent w/u showed an esophageal ulcer as the cause of her chest discomfort Ischemic cardiomyopathy with apical hypokinesis to akinesis; left ventricular ejection fraction of 45%; elevated left ventricular end diastolic pressure; no significant mitral regurgitation; on cardiac cath of 09/14/15. GI bleed - esophageal ulcer associated with clot. No active bleeding at the time of EGD on 09-17-[address] Olivera Atherosclerosis involving the aortic arch and origin of the neck arteries. The left subclavian artery has approximately 30% proximal stenosis seen on a remote cardiac cath Hypertension and white-coat hypertension. 24 hr amb bp in October 2016 showed mildly elevated daytime bp CKD stage 3 LBBB Chronic exertional dyspnea, probably related to some degree of chronic obstructive pulmonary disease. Mild obstructive lung defect was noted without significant response to bronchodilator therapy on pulmonary function test of 02/2010. Last echocardiogram was in July 2012. It showed left ejection fraction of 55 percent, mild tricuspid regurgitation, pulmonary artery systolic pressure of 38 mm mercury. Hyperlipidemia - statin therapy S/p malignant scalp lesion removal by Dr Spivey in Mar 2015. This is being followed by Dr Spivey S/p colectomy for colon cancer in August 2015, being followed by Dr Spivey and Dr Teixeira CT of the chest/abdomen/pelvis form 07-06-15 emphysema, stable nonspecific nodular densities int he RML and along the lateral aspect of the right major fissure superiorly, unchanged form CT chest of 08-06-14 exam. Nonspecific. Moderate hiatal hernia. Carotid arterial disease - carotid u/s of October 19 2017 shows 60% bilat stenosis Chronic mild, intermittent leg swelling Generalized fatigue and malaise Chronic back pain, that did not change with cessation of statins. Clinical Quality Measures AMI/AHF: ASA po Prior to arrival: ELIANE Gutierrez Jan 22, 2018 14:44
--- NOTE | 2018-01-22 15:40 | Consultation-Cardiology ---
HPI-Cardiology Cardiology Consultation: Date of Consultation 01/22/18 Time Seen by Provider: 15:20 Date of Admission Attending Physician Kwesi Escobar DO Admitting Physician Kwesi Escobar DO Consulting Physician RADHIKA DAY MD, MA, FACP, FACC, FSCAI, CCDS HPI: Chief Complaint: CC: Chest pain Ms. Robertson is an 82 year old female who has been sent to the ED by her PCP with c/o CP. Her daughter is at the bedside. She reports for the last several weeks she has had episodes of left sided neck pain. She reports she then has pain in the left side of her chest which is localized and does not radiate. It lasts for 10-15 minutes. She describes it as a sharp sticking pain. The discomfort occurs without r/t activity or emotional stress. She does not have the pain every day. The most recent episode was this morning while she was sitting in a chair at Dr. Escobar's office. No c/o palpitations, syncope or near syncope. She reports she felt nauseated with the episode of chest discomfort she had yesterday evening. She denies any LE edema. No n/v/d. No c /o fever or chills. Review of Systems-Cardiology Review of Systems Constitutional: No chills, No fever, No malaise Eyes: No vision change Ears/Nose/Throat: No epistaxis, No recent hearing loss Respiratory: As described under HPI Cardiovascular: As described under HPI Gastrointestinal: As described under HPI Genitourinary: No dysuria, No hematuria Musculoskeletal: no symptoms reported Skin: No rash, No ulcerations Psychiatric/Neurological: No anxiety, No depression, No seizure, No focal weakness, No syncope Hematologic: No bleeding abnormalities RCZ-Iiopfn-Rowlqv Hx Patient Social History Alcohol Use: Denies Use Recreational Drug Use: No Smoking Status: Former Smoker Former smoker/When Quit: Apr 03, 1991 2nd Hand Smoke Exposure: Yes Recent Foreign Travel: No Recent Infectious Disease Expo: No Hospitalization with Isolation: Denies Immunizations Up To Date Tetanus Booster (TDap): More than 5yrs Date of Pneumonia Vaccine: Jul 03, 2016 Date of Influenza Vaccine: Mar 07, 2016 Past Medical History PMH As described under Assessment. Family Medical History Family Medical History: Reports fam h/o early CAD (sister) Family History: Completed stroke 19 FATHER Hypertension 19 MOTHER Myocardial infarction 19 MOTHER G8 SISTER Allergies and Home Medications Allergies Coded Allergies: tramadol (Verified Allergy, Intermediate, RASH, 06/30/15) hydralazine (Verified Allergy, Unknown, 01/22/18) lidocaine (Verified Allergy, Unknown, 02/01/09) penicillin G (Verified Allergy, Unknown, 01/08/09) propoxyphene (Verified Allergy, Unknown, 01/08/09) Home Medications Acetaminophen 500 Mg Tablet, 1,000 MG PO Q8H PRN for PAIN, (Reported) Amlodipine Besylate 5 Mg Tablet, 2.5 MG PO DAILY, (Reported) TAKES 1/2 OF A (5 MG) TABLET Atorvastatin Calcium 40 Mg Tablet, 40 MG PO HS, (Reported) Clonazepam 0.5 Mg Tablet, 0.5 MG PO HS, (Reported) Clopidogrel Bisulfate 75 Mg Tablet, 75 MG PO DAILY, (Reported) Furosemide 20 Mg Tablet, 20 MG PO EVERY OTHER DAY, (Reported) Metoprolol Tartrate 50 Mg Tablet, 50 MG PO BID, (Reported) Pantoprazole Sodium 40 Mg Tablet.dr, 40 MG PO DAILY, (Reported) Sertraline HCl 25 Mg Tablet, 25 MG PO DAILY, (Reported) Sucralfate 1 Gm/10 Ml Oral.susp, 1 GM PO QID Prescribed by: ISAURA TAN on 09/23/15 1047 Patient Home Medication List Home Medication List Reviewed: Yes Physical Exam-Cardiology Physical Exam Vital Signs/I&O 01/22/18 01/22/18 01/22/18 13:21 13:21 15:16 Temp 97.9 97.9 Pulse 72 62 Resp 18 18 B/P (MAP) 171/85 (113) 159/72 (113) Pulse Ox 97 96 O2 Delivery Room Air Room Air Room Air Capillary Refill : Less Than 3 Seconds Constitutional: AAO x 3, well-developed, well-nourished HEENT: PERRL, hearing is well preserved Neck: carotid bruit, carotid pulses are 2 + bilaterally Respiratory: No accessory muscle use, No respiratory distress; chest expansion is symmetric, chest is bilaterally symmetric, lungs clear to auscultation Cardiovascular: regular rate-rhythm; No JVD; S1 and S2 Gastrointestinal: No tender; soft, round, audible bowel sounds Rectal: deferred Extremities: no lower extremity edema bilateral Neurologic/Psychiatric: grossly intact, power is 5/5 both on sides Skin: No rash, No ulcerations Data Review Labs Laboratory Tests 01/22/18 13:30: White Blood Count 7.4, Red Blood Count 4.83, Hemoglobin 14.1, Hematocrit 41, Mean Corpuscular Volume 84, Mean Corpuscular Hemoglobin 29, Mean Corpuscular Hemoglobin Concent 35, Red Cell Distribution Width 13.4, Platelet Count 238, Mean Platelet Volume 9.5, Neutrophils (%) (Auto) 65, Lymphocytes (%) (Auto) 23, Monocytes (%) (Auto) 8, Eosinophils (%) (Auto) 4, Basophils (%) (Auto) 1, Neutrophils # (Auto) 4.8, Lymphocytes # (Auto) 1.7, Monocytes # (Auto) 0.6, Eosinophils # (Auto) 0.3, Basophils # (Auto) 0.0, Prothrombin Time 14.0, INR Comment 1.1, Activated Partial Thromboplast Time 35, Sodium Level 139, Potassium Level 4.0, Chloride Level 104, Carbon Dioxide Level 26, Anion Gap 9, Blood Urea Nitrogen 25H, Creatinine 1.15, Estimat Glomerular Filtration Rate 45 , BUN/Creatinine Ratio 22, Glucose Level 86, Calcium Level 9.9, Corrected Calcium 9.7, Magnesium Level 2.0, Total Bilirubin 0.7, Aspartate Amino Transf ( AST/SGOT) 23, Alanine Aminotransferase (ALT/SGPT) 18, Alkaline Phosphatase 78, Myoglobin 92.3H, Troponin I < 0.30, Total Protein 8.6H, Albumin 4.2 Laboratory Tests 01/22/18 13:30 A/P-Cardiology Assessment/Admission Diagnosis Chest pain of undetermined etiology Chronic LBBB Coronary artery disease. Last cardiac cath of 09-16-15 showed Patent stents in the mid left anterior descending artery known to be Promus 2.5 x 15 mm placed several years ago and Promus 2.25 x 12 mm placed on 09/14/2015. The mid left anterior descending artery has moderate disease. The left circumflex artery has mild disease. The right coronary artery has a patent stent known to be vision 4 x 28 mm stent in the mid right coronary artery placed several years ago. The right coronary artery has diffuse, moderate disease. Repeat cath of 09/16/15 for chest discomfort showed stable cardiac status and subsequent w/u showed an esophageal ulcer as the cause of her chest discomfort Ischemic cardiomyopathy with apical hypokinesis to akinesis; left ventricular ejection fraction of 45%; elevated left ventricular end diastolic pressure; no significant mitral regurgitation; on cardiac cath of 09/14/15. GI bleed - esophageal ulcer associated with clot. No active bleeding at the time of EGD on 09-17-[address] Olivera Atherosclerosis involving the aortic arch and origin of the neck arteries. The left subclavian artery has approximately 30% proximal stenosis seen on a remote cardiac cath Hypertension and white-coat hypertension. 24 hr amb bp in October 2016 showed mildly elevated daytime bp CKD stage 3 LBBB Chronic exertional dyspnea, probably related to some degree of chronic obstructive pulmonary disease. Mild obstructive lung defect was noted without significant response to bronchodilator therapy on pulmonary function test of 02/2010. Last echocardiogram was in July 2012. It showed left ejection fraction of 55 percent, mild tricuspid regurgitation, pulmonary artery systolic pressure of 38 mm mercury. Hyperlipidemia - statin therapy S/p malignant scalp lesion removal by Dr Spivey in Mar 2015. This is being followed by Dr Spivey S/p colectomy for colon cancer in August 2015, being followed by Dr Spivey and Dr Teixeira CT of the chest/abdomen/pelvis form 07-06-15 emphysema, stable nonspecific nodular densities int he RML and along the lateral aspect of the right major fissure superiorly, unchanged form CT chest of 08-06-14 exam. Nonspecific. Moderate hiatal hernia. Carotid arterial disease - carotid u/s of October 19 2017 shows 60% bilat stenosis Chronic mild, intermittent leg swelling Generalized fatigue and malaise Chronic back pain, that did not change with cessation of statins. Discussion and Recomendations * Continue tele * Serial card enzymes * Echo today * MPI tomorrow (cath, instead of MPI, if troponin positive) * Continue home meds Clinical Quality Measures AMI/AHF: ASA po Prior to arrival: RADHIKA Cantu MD FACP FAC CCDS Jan 22, 2018 15:39
[2018-01-22] MEDS ORDERED: NITROGLYCERIN 0.4 MG SL TABS BTL 25'S SL PRN (15:45)
[2018-01-22] MEDS ORDERED: morphine INJ 4 MG/ML 1 ML (VIAL/SYRINGE) IV PRN (15:45)
[2018-01-22] MEDS ORDERED: CATHETER FLUSH 10 ML SYR IV PRN (15:45)
[2018-01-22] MEDS ORDERED: AMLO5TAB7 PO (15:53)
[2018-01-22 16:00] VITALS: BP 183/87
[2018-01-22] MEDS ORDERED: FERR-84 PO (16:09)
[2018-01-22] MEDS ORDERED: LOPE-145 PO (16:09)
[2018-01-22] MEDS ORDERED: FLU QUADRIvalent (5+ YOA) 2018-2019 (AFLURIA) 0.5 ML IM ONE (17:15)
[2018-01-22] MEDS ORDERED: PATIENT MAY USE OWN MEDS, ALL MC SCH (18:00)
[2018-01-22 19:40] VITALS: BP 140/68
[2018-01-22] MEDS ORDERED: ATORVASTATIN 20 MG (LIPITOR) TABLET PO SCH (21:00)
[2018-01-22] MEDS ORDERED: ATORVASTATIN 40 MG (LIPITOR) TABLET PO SCH (21:00)
[2018-01-22] MEDS ORDERED: clonazePAM 0.5 MG (KlonoPIN) TAB PO SCH (21:00)
[2018-01-22] MEDS: CATHETER FLUSH 10 ML SYR IV SCH (22:00)
[2018-01-23 00:09] VITALS: BP 126/65
[2018-01-23 04:00] VITALS: BP 116/62
[2018-01-23] MEDS: CATHETER FLUSH 10 ML SYR IV SCH ×2 (06:00→11:00)
[2018-01-23 06:24] LABS: CHOLESTEROL 136 MG/DL (< 200); HDL CHOLESTEROL 39 MG/DL (40-60); TRIGLYCERIDES 71 MG/DL (<150); VLDL CHOLESTEROL 14 MG/DL (5-40)
[2018-01-23] MEDS ORDERED: FERROUS SULF 325 MG (IRON) TAB PO SCH (07:00)
[2018-01-23] MEDS ORDERED: PANTOPRAZOLE 40 MG (PROTONIX) TAB PO SCH (07:00)
[2018-01-23] MEDS ORDERED: FUROSEMIDE 20 MG (LASIX) TAB PO SCH (07:00)
--- NOTE | 2018-01-23 08:14 | History & Physicial ---
History of Present Illness History of Present Illness Reason for visit/HPI She came to the office today with her daughter. Patient having left-sided neck pain and chest pain. This is been going on for the last 2 weeks. This is been getting worse. Yesterday patient had nauseous with the chest pain. Family history has history of heart disease in the family. Denies asthma TB diabetes. HEENT denies problems. Surgeries:. Colon cancer and cancer on head. Date of Admission Jan 22, 2018 at 14:58 Time Seen by a Provider: 08:09 I consulted on this patient on 01/23/18 08:03 Attending Physician Kwesi Anne DO Admitting Physician Kwesi Anne DO Consult Allergies and Home Medications Allergies Coded Allergies: tramadol (Verified Allergy, Intermediate, RASH, Pt has received Lortab & Morphine in the past, 01/22/18) hydralazine (Verified Allergy, Unknown, 01/22/18) lidocaine (Verified Allergy, Unknown, 02/01/09) penicillin G (Verified Allergy, Unknown, 01/08/09) propoxyphene (Verified Allergy, Unknown, 01/08/09) Home Medications Acetaminophen 500 Mg Tablet, 1,000 MG PO Q6H PRN for PAIN-MILD, (Reported) Amlodipine Besylate 5 Mg Tablet, 5 MG PO DAILY, (Reported) Atorvastatin Calcium 40 Mg Tablet, 40 MG PO HS, (Reported) Clonazepam 0.5 Mg Tablet, 0.5 MG PO HS, (Reported) Clopidogrel Bisulfate 75 Mg Tablet, 75 MG PO DAILY, (Reported) Ferrous Sulfate 325 Mg Tablet, 325 MG PO DAILY, (Reported) Furosemide 20 Mg Tablet, 20 MG PO Q48H, (Reported) Loperamide HCl 2 Mg Capsule, 2 MG PO UD PRN for DIARRHEA, (Reported) Pantoprazole Sodium 40 Mg Tablet.dr, 40 MG PO DAILY, (Reported) Sertraline HCl 25 Mg Tablet, 25 MG PO DAILY, (Reported) Patient Home Medication List Home Medication List Reviewed: Yes Past Zyylwpu-Twxmxx-Cnbvje Hx Patient Social History Marrital Status: Employed/Student: retired Alcohol Use: Denies Use Recreational Drug Use: No Smoking Status: Former Smoker Former Smoker, Quit: Mar 23, 1990 2nd Hand Smoke Exposure: Yes Physical Abuse Screen: No Sexual Abuse: No Recent Foreign Travel: No Contact w/other who traveled: No Recent Hopitalizations: No Recent Infectious Disease Expo: No Immunizations Up To Date Tetanus Booster (TDap): More than 5yrs Date of Pneumonia Vaccine: Jul 03, 2016 Date of Influenza Vaccine: Mar 07, 2016 Seasonal Allergies Seasonal Allergies: Yes (MILD) Surgeries Yes (Gallbladder and appy, LUMPECTOMY, EXC. LESION W/SKIN GRAFT, COLON RESECTION ) Appendectomy, Breast, Coronary Stent, Gallbladder Respiratory No (COPD) Currently Using CPAP: No Cardiovascular Yes (stents) Coronary Artery Disease, Heart Attack, High Cholesterol, Hypertension, Peripheral Vascular (Carotid stenosis) Neurological No (BECOMING FORGETFUL) Reproductive System Hx Reproductive Disorders: No Sexually Transmitted Disease: No HIV/AIDS: No Female Reproductive Disorders: Denies Genitourinary Yes Renal Failure (Chronic kidney disease, history of contrast nephropathy) Gastrointestinal Yes (DYSPHAGIA) Gastroesophageal Reflux, Hiatal Hernia, Ulcer Musculoskeletal Yes (ARTHRITIS) Osteoporosis, Arthritis Endocrine History of Endocrine Disorders: No HEENT HEENT Disorders: Cataract Loss of Vision: Denies Hearing Impairment: Denies Cancer Yes (CECAL, COLON CA REMOVED) Skin, Colon Type of Treatment: Surgical Intervention Psychosocial History of Psychiatric Problem: Yes (MILD) Behavioral Health Disorders: Anxiety, Depression Integumentary History of Skin or Integumenta: No Blood Transfusions History of Blood Disorders: Yes (HX OF ANEMIA) Adverse Reaction to a Blood Tr: No (HAS HAD BLOOD WITH NO REACTION) Family Medical History Significant Family History: No Pertinent Family Hx Family Hx: Completed stroke 19 FATHER Hypertension 19 MOTHER Myocardial infarction 19 MOTHER G8 SISTER Review of Systems Constitutional: no symptoms reported Respiratory: no symptoms reported Cardiovascular: chest pain, other (Left sided neck pain) Gastrointestinal: no symptoms reported Genitourinary: no symptoms reported Physical Exam Vital Signs Vital Signs - First Documented Capillary Refill : Less Than 3 Seconds Height, Weight, BMI Height: 5'0.00" Weight: 120lbs. 0.0oz. [id number]; 23.4 BMI Method:Stated General Appearance: No Apparent Distress, Thin Eyes: Bilateral Eye Normal Inspection HEENT: Normal ENT Inspection Neck: Full Range of Motion, Normal Inspection Respiratory: No Accessory Muscle Use, No Respiratory Distress Cardiovascular: Regular Rate, Rhythm, No Murmur Gastrointestinal: Non Tender, Soft Assessment/Plan Admission Diagnosis Chest pain. Unstable angina. Coronary artery disease. Hypertension. Colon cancer history. Hyperlipidemia Admission Status: Observation Clinical Quality Measures AMI/AHF: ASA po Prior to arrival: No DVT/VTE Risk/Contraindication: Risk Factor Score Per Nursin RFS Level Per Nursing on Admit: 4+=Very High KWESI ANNE DO Jan 23, 2018 08:14
[2018-01-23 08:25] VITALS: BP 108/59
--- NOTE | 2018-01-23 08:39 | Progress Note (SOAP) ---
Subjective Time Seen by a Provider: 08:34 Subjective/Events-last exam 82 yo female who presents to the ED c/o CP. This has been ongoing for the past two weeks intermittently. Earlier Presented to PCPs office with nausea and was referred to the ED. Describes pain as a burning in her left neck and chest. Workup in the ED showed negative troponin, positive myoglobin. Diagnosis of angina without STEMI. Admitted on observation. SHe has a Hx of CAD, colon Cx an HTN. She's opted not to treat the colon cancer. Objective Exam Vital Signs Date Time Temp Pulse Resp B/P (MAP) Pulse Ox O2 Delivery O2 Flow Rate FiO2 01/23/18 08:25 97.9 69 18 108/59 (75) 96 Room Air 01/23/18 07:42 61 01/23/18 04:00 98.8 76 20 116/62 (80) 93 Room Air 01/23/18 01:00 60 01/23/18 00:09 97.3 73 20 126/65 (85) 93 Room Air 01/22/18 20:00 93 Room Air 01/22/18 19:40 97.5 60 22 140/68 (92) 94 Room Air 01/22/18 19:00 72 01/22/18 16:55 69 01/22/18 16:00 98.2 76 18 183/87 (119) 97 Room Air 01/22/18 15:16 97.9 62 18 159/72 (113) 96 Room Air 01/22/18 13:21 Room Air 01/22/18 13:21 97.9 72 18 171/85 (113) 97 Room Air I & O 01/23/18 07:00 Intake Total 700 ml Output Total 1375 ml Balance -675 ml Capillary Refill : Less Than 3 Seconds General Appearance: No Apparent Distress, WD/WN HEENT: Normal ENT Inspection Neck: Full Range of Motion, Normal Inspection Respiratory: Chest Non Tender, Lungs Clear, Normal Breath Sounds, No Accessory Muscle Use, No Respiratory Distress Cardiovascular: Regular Rate, Rhythm, No Edema, No Gallop, No JVD, No Murmur, Normal Peripheral Pulses Neurologic/Psychiatric: Alert, Oriented x3 Skin: Normal Color, Warm/Dry Results Lab Laboratory Tests 01/22/18 13:30: White Blood Count 7.4, Red Blood Count 4.83, Hemoglobin 14.1, Hematocrit 41, Mean Corpuscular Volume 84, Mean Corpuscular Hemoglobin 29, Mean Corpuscular Hemoglobin Concent 35, Red Cell Distribution Width 13.4, Platelet Count 238, Mean Platelet Volume 9.5, Neutrophils (%) (Auto) 65, Lymphocytes (%) (Auto) 23, Monocytes (%) (Auto) 8, Eosinophils (%) (Auto) 4, Basophils (%) (Auto) 1, Neutrophils # (Auto) 4.8, Lymphocytes # (Auto) 1.7, Monocytes # (Auto) 0.6, Eosinophils # (Auto) 0.3, Basophils # (Auto) 0.0, Prothrombin Time 14.0, INR Comment 1.1, Activated Partial Thromboplast Time 35, Sodium Level 139, Potassium Level 4.0, Chloride Level 104, Carbon Dioxide Level 26, Anion Gap 9, Blood Urea Nitrogen 25H, Creatinine 1.15, Estimat Glomerular Filtration Rate 45 , BUN/Creatinine Ratio 22, Glucose Level 86, Calcium Level 9.9, Corrected Calcium 9.7, Magnesium Level 2.0, Total Bilirubin 0.7, Aspartate Amino Transf ( AST/SGOT) 23, Alanine Aminotransferase (ALT/SGPT) 18, Alkaline Phosphatase 78, Myoglobin 92.3H, Troponin I < 0.30, Total Protein 8.6H, Albumin 4.2 01/23/18 05:20: Triglycerides Level 71, Cholesterol Level 136, LDL Cholesterol Direct 83, VLDL Cholesterol 14, HDL Cholesterol 39L Assessment/Plan Assessment/Plan Assess & Plan/Chief Complaint Angina: Stress test today at 11AM -- plan to discharge home after. CAD. HTN Colon Cx: Opted not to receive chemotherapy. Hyperlipidemia Clinical Quality Measures Admission Status Admission Dx Chest pain. Unstable angina. Coronary artery disease. Hypertension. Colon cancer history. Hyperlipidemia AMI/AHF: ASA po Prior to arrival: No DVT/VTE Risk/Contraindication: Risk Factor Score Per Nursin RFS Level Per Nursing on Admit: 4+=Very High Contraindications-Pharm: Other *list below* EDGAR ANNE DO Jan 23, 2018 08:39
[2018-01-23] MEDS ORDERED: amLODIPine 5 MG (NORVASC) TAB PO SCH ×2 (09:00)
[2018-01-23] MEDS ORDERED: ASPIRIN E.C. 81 MG (ECOTRIN) TAB PO SCH (09:00)
[2018-01-23] MEDS ORDERED: CLOPIDOGREL 75 MG (PLAVIX) TABLET PO SCH ×2 (09:00)
[2018-01-23] MEDS ORDERED: SERTRALINE 25 MG TABLET PO SCH (09:00)
[2018-01-23] MEDS ORDERED: REGADENOSON 0.4 MG/5 ML SYR (LEXISCAN) IV ONE ×2 (10:51→11:00)
[2018-01-23 10:58] VITALS: BP 167/75
[2018-01-23 12:00] VITALS: BP 144/70
--- NOTE | 2018-01-23 13:25 | STRESS TEST ---
DATE OF SERVICE: 01/23/2018 RESTING AND POST REGADENOSON TECHNETIUM-99M TETROFOSMIN SPECT CT IMAGING ORDERING PHYSICIAN: Gerri Reece APRN PRIMARY CARE PHYSICIAN: Dr. Escobar. OTHER PHYSICIAN: Dr. Harris. CLINICAL DIAGNOSES: Coronary artery disease, chest discomfort. Baseline images were carried out after injection of 10.95 mCi technetium-99m Tetrofosmin. This was followed by 0.4 mg regadenoson and 32.9 mCi of technetium-99m Tetrofosmin for stress imaging. The electrocardiogram showed sinus rhythm with left bundle branch block throughout the study. The patient did not report any significant symptoms. Overall, she tolerated the procedure well. Review of images at rest and following stress does not indicate any significant perfusion defects consistent with myocardial ischemia or infarction. Gated images show normal global left ventricular systolic function. Normal regional wall motion. Left ventricular ejection fraction is calculated to be 71%. Left ventricular end diastolic volume is 18 mL. TID is absent (0.93). CONCLUSIONS: 1. No evidence of any significant myocardial ischemia or infarction on this study. 2. Normal regional wall motion. 3. Normal global left ventricular systolic function with a calculated ejection fraction of 71%. Job ID: [id number] DocumentID: [id number] Dictated Date: 01/23/2018 13:06:31 Screen Printing Loader Unloader Date: 01/23/2018 13:24:51 Dictated By: RADHIKA HARRIS MD, MA, FACP, FACC,
--- NOTE | 2018-01-23 13:30 | Progress Note-Cardiology ---
Cardiology SOAP Progress Note Subjective: No cp or palp or syncope or shortness of breath Wishes to go home Objective: I&O/Vital Signs 01/23/18 01/23/18 01/23/18 01/23/18 04:00 07:42 08:25 10:58 Temp 98.8 97.9 Pulse 76 61 69 58 Resp 20 18 16 B/P (MAP) 116/62 (80) 108/59 (75) 167/75 (105) Pulse Ox 93 96 97 O2 Delivery Room Air Room Air Room Air 01/23/18 12:00 Temp 98.3 Pulse 92 Resp 20 B/P (MAP) 144/70 (94) Pulse Ox 96 O2 Delivery Room Air 01/23/18 00:00 Intake Total 500 ml Output Total 1375 ml Balance -875 ml Weight (Pounds): 120 Weight (Ounces): 0.0 Weight (Calculated Kilograms): [id number] Constitutional: AAO x 3, well-developed, well-nourished Respiratory: No accessory muscle use, No respiratory distress; chest expansion is symmetric, chest is bilaterally symmetric, lungs clear to auscultation Cardiovascular: regular rate-rhythm; No JVD; S1 and S2 Gastrointestional: No tender; soft, round, audible bowel sounds Extremities: no lower extremity edema bilateral Neurologic/Psychiatric: grossly intact, power is 5/5 both on sides Skin: No rash, No ulcerations Results/Procedures: Labs Laboratory Tests 01/22/18 13:30: White Blood Count 7.4, Red Blood Count 4.83, Hemoglobin 14.1, Hematocrit 41, Mean Corpuscular Volume 84, Mean Corpuscular Hemoglobin 29, Mean Corpuscular Hemoglobin Concent 35, Red Cell Distribution Width 13.4, Platelet Count 238, Mean Platelet Volume 9.5, Neutrophils (%) (Auto) 65, Lymphocytes (%) (Auto) 23, Monocytes (%) (Auto) 8, Eosinophils (%) (Auto) 4, Basophils (%) (Auto) 1, Neutrophils # (Auto) 4.8, Lymphocytes # (Auto) 1.7, Monocytes # (Auto) 0.6, Eosinophils # (Auto) 0.3, Basophils # (Auto) 0.0, Prothrombin Time 14.0, INR Comment 1.1, Activated Partial Thromboplast Time 35, Sodium Level 139, Potassium Level 4.0, Chloride Level 104, Carbon Dioxide Level 26, Anion Gap 9, Blood Urea Nitrogen 25H, Creatinine 1.15, Estimat Glomerular Filtration Rate 45 , BUN/Creatinine Ratio 22, Glucose Level 86, Calcium Level 9.9, Corrected Calcium 9.7, Magnesium Level 2.0, Total Bilirubin 0.7, Aspartate Amino Transf ( AST/SGOT) 23, Alanine Aminotransferase (ALT/SGPT) 18, Alkaline Phosphatase 78, Myoglobin 92.3H, Troponin I < 0.30, Total Protein 8.6H, Albumin 4.2 01/23/18 05:20: Triglycerides Level 71, Cholesterol Level 136, LDL Cholesterol Direct 83, VLDL Cholesterol 14, HDL Cholesterol 39L Laboratory Tests 01/22/18 13:30 A/P: Assessment: Chest pain of undetermined etiology, likely non-cardiac, etiology unestablished Chronic LBBB Coronary artery disease. Last cardiac cath of 09-16-15 showed Patent stents in the mid left anterior descending artery known to be Promus 2.5 x 15 mm placed several years ago and Promus 2.25 x 12 mm placed on 09/14/2015. The mid left anterior descending artery has moderate disease. The left circumflex artery has mild disease. The right coronary artery has a patent stent known to be vision 4 x 28 mm stent in the mid right coronary artery placed several years ago. The right coronary artery has diffuse, moderate disease. Repeat cath of 09/16/15 for chest discomfort showed stable cardiac status and subsequent w/u showed an esophageal ulcer as the cause of her chest discomfort Echo of 01/22/18: LVEF 50-55%, mild apical hypokinesis, MAC w/o MS, AoV sclerosis w/o AoV stenosis, mild MR & TR, PASP 45 mmHg MPI of 01/23/18: No ischemia or infarction, LVEF 71% GI bleed - esophageal ulcer associated with clot. No active bleeding at the time of EGD on 09-17-[address] Olivera Atherosclerosis involving the aortic arch and origin of the neck arteries. The left subclavian artery has approximately 30% proximal stenosis seen on a remote cardiac cath Hypertension and white-coat hypertension. 24 hr amb bp in October 2016 showed mildly elevated daytime bp CKD stage 3 LBBB Chronic exertional dyspnea, probably related to some degree of chronic obstructive pulmonary disease. Mild obstructive lung defect was noted without significant response to bronchodilator therapy on pulmonary function test of 02/2010. Hyperlipidemia - statin therapy S/p malignant scalp lesion removal by Dr Spivey in Mar 2015. This is being followed by Dr Spivey S/p colectomy for colon cancer in August 2015, being followed by Dr Spivey and Dr Teixeira CT of the chest/abdomen/pelvis form 07-06-15 emphysema, stable nonspecific nodular densities int he RML and along the lateral aspect of the right major fissure superiorly, unchanged form CT chest of 08-06-14 exam. Nonspecific. Moderate hiatal hernia. Carotid arterial disease - carotid u/s of October 19 2017 shows 60% bilat stenosis Generalized fatigue and malaise, chronic Chronic back pain, that did not change with cessation of statins. Plan: * We reviewed and discussed the results of cardiac w/u * Continuing cardiac risk factor mod and compliance with meds and outpt f/u is advised * We recommend f/u with Dr Escobar for eval of noncardiac causes of chest discomfort * Questions answered when I saw her this morning Clinical Quality Measures AMI/AHF: ASA po Prior to arrival: RADHIKA Cantu MD FACP FACC CCDS Jan 23, 2018 13:30
--- NOTE | 2018-01-24 07:20 | Clinic Account Progress/Dx ---
Clinic Account Progress/Dx DIAGNOSIS: Time Seen by Provider: 07:19 Chest pain noncardiac. Coronary artery disease. Ischemic cardiomyopathy. CK D3. Colon cancer history. Hyperlipidemia EDGAR ANNE DO Jan 24, 2018 07:20
== END 2018-01-23 13:44 | disposition home or self-care (01) ==
LOC: EDUNIT# 13:19 → ER 13:20 → 4TH 14:58 → UNDOADMOB 14:58 → 4TH 15:45 → UNDODISOB 01-23 16:09
PROVIDERS: ADMIT Family Medicine; ATTEND Family Medicine
DX: R07.89 Other chest pain (principal); I25.10 Atherosclerotic heart disease of native coronary artery without angina pectoris; I25.5 Ischemic cardiomyopathy; I08.1 Rheumatic disorders of both mitral and tricuspid valves; I70.0 Atherosclerosis of aorta; I65.23 Occlusion and stenosis of bilateral carotid arteries; I44.7 Left bundle-branch block, unspecified; I12.9 Hypertensive chronic kidney disease with stage 1 through stage 4 chronic kidney disease, or unspecified chronic kidney disease; N18.3 Chronic kidney disease, stage 3 (moderate); I73.9 Peripheral vascular disease, unspecified; J44.9 Chronic obstructive pulmonary disease, unspecified; E78.5 Hyperlipidemia, unspecified; K21.9 Gastro-esophageal reflux disease without esophagitis; F32.9 Major depressive disorder, single episode, unspecified; F41.9 Anxiety disorder, unspecified; R53.83 Other fatigue; I25.2 Old myocardial infarction; Z85.038 Personal history of other malignant neoplasm of large intestine; Z85.828 Personal history of other malignant neoplasm of skin; Z95.5 Presence of coronary angioplasty implant and graft; Z87.891 Personal history of nicotine dependence
CPT/HCPCS: 36415; 71045; 78452; 80053; 80061; 83735; 83874; 84484; 85025; 85610; 85730; 93005; 93017; 93041; 93306; G0378

== ENCOUNTER 2018-03-12 08:39 | Outpatient (RCR) | payer MEDICARE, OTHER ==
[~2018-03-12 08:39] MED LIST changes: +AMLO5TAB9 PO; +FERR-84 PO; +LOPE-145 PO; +LOSA50TA63 PO; -LOSA50TA7 PO; +METR-145 PO; -METR500T21 PO
[2018-03-12 08:51] LABS: BASOPHILS % (AUTO) 0 % (0-10); EOSINOPHILS # (AUTO) 0.4 10^3/uL (0.0-0.3); EOSINOPHILS % (AUTO) 4 % (0-10); HEMATOCRIT 39 % (35-52); HEMOGLOBIN 12.9 G/DL (11.5-16.0); LYMPHOCYTES # (AUTO) 1.3 X 10^3 (1.0-4.0); LYMPHOCYTES % (AUTO) 16 % (12-44); MEAN CORPUSCULAR HEMOGLOBIN 29 PG (25-34); MEAN CORPUSCULAR HGB CONC 33 G/DL (32-36); MEAN CORPUSCULAR VOLUME 87 FL (80-99); MEAN PLATELET VOLUME 9.4 FL (7.4-10.4); MONOCYTES # (AUTO) 0.6 X 10^3 (0.0-1.0); MONOCYTES % (AUTO) 8 % (0-12); NEUTROPHILS # (AUTO) 5.8 X 10^3 (1.8-7.8); NEUTROPHILS % (AUTO) 72 % (42-75); PLATELET COUNT 237 10^3/uL (130-400); RED CELL DISTRIBUTION WIDTH 12.9 % (10.0-14.5)
[2018-03-12 09:15] LABS: ALBUMIN 3.7 GM/DL (3.2-4.5); BILIRUBIN,TOTAL 0.5 MG/DL (0.1-1.0); CALCIUM 9.6 MG/DL (8.5-10.1); CREATININE SERUM 1.39 MG/DL (0.60-1.30); POTASSIUM 4.4 MMOL/L (3.6-5.0); TOTAL PROTEIN 7.9 GM/DL (6.4-8.2)
[2018-04-17] MEDS ORDERED: AMLO2.5T4 PO (16:12)
[2018-04-24] MEDS ORDERED: ACHD5005 PO (11:37)
== END 2018-06-10 | disposition home or self-care (01) ==
LOC: ONC 08:39
PROVIDERS: ATTEND Internal Medicine Hematology & Oncology
DX: C18.0 Malignant neoplasm of cecum (principal); D50.0 Iron deficiency anemia secondary to blood loss (chronic); K22.11 Ulcer of esophagus with bleeding; I12.9 Hypertensive chronic kidney disease with stage 1 through stage 4 chronic kidney disease, or unspecified chronic kidney disease; N18.3 Chronic kidney disease, stage 3 (moderate); I25.10 Atherosclerotic heart disease of native coronary artery without angina pectoris; E78.5 Hyperlipidemia, unspecified; R53.83 Other fatigue; Z79.899 Other long term (current) drug therapy; Z79.02 Long term (current) use of antithrombotics/antiplatelets
CPT/HCPCS: 36415; 80053; 82378; 82728; 85025; 99213

== ENCOUNTER 2018-04-17 05:49 | Outpatient (CLI) | payer MEDICARE, OTHER ==
[~2018-04-17] VITALS: Ht 152.4 cm; Wt 54.4 kg
[~2018-04-17 05:49] MED LIST changes: +AMLO5TAB7 PO; -AMLO5TAB9 PO; -LOSA50TA63 PO; +LOSA50TA7 PO; -METR-145 PO; +METR-197 PO
[2018-04-17] MEDS ORDERED: AMLO2.5T3 PO (16:12)
== END 2018-04-17 16:16 | disposition home or self-care (01) ==
LOC: PREOP 05:49
PROVIDERS: ATTEND Surgery
DX: Z01.818 Encounter for other preprocedural examination (principal)

== ENCOUNTER → 2018-04-22 | Outpatient (CLI) | payer MEDICARE, OTHER ==
[~2018-04-22] MED LIST changes: +AMLO2.5T3 PO
--- NOTE | 2018-04-22 21:18 | Diagnostic Imaging Report ---
INDICATION: Trauma to hand, hit on shopping cart two days ago. Pain and swelling. TECHNIQUE: Three views of the left hand. CORRELATION STUDY: None. FINDINGS: There is generalized bony demineralization present. An acute fracture is not demonstrated. There is a rather extensive chronic-type change about the left hand and wrist. There is marked deformity at the first carpometacarpal articulation with significant volume loss of the trapezium and trapezoid. There is some erosive change suggested at the first metacarpal base. Radial subluxation of the first metacarpal in relation to the carpal anatomy is noted with bony osteophytes and fragmentation in this area. There is also narrowing of the radiocarpal row. Prominent calcification of triangular fibrocartilage complex. There is also deformity at the second metacarpophalangeal joint with distortion of the joint. There is some erosive change at the base of the proximal phalanx suggested. There is narrowing of the interphalangeal joints particularly at the distal interphalangeal joint of the middle finger. IMPRESSION: 1. Negative for acute bony abnormality of the hand. 2. Rather extensive areas of significant chronic-type changes. This includes erosive and degenerative change about the first carpometacarpal articulation as well as the second metacarpophalangeal joint. Dictated by: Dictated on workstation # [id number]
== END ==
LOC: RAD 11:10
PROVIDERS: ATTEND Family Medicine
DX: S69.92XA Unspecified injury of left wrist, hand and finger(s), initial encounter (principal); M19.042 Primary osteoarthritis, left hand; W22.8XXA Striking against or struck by other objects, initial encounter
CPT/HCPCS: 73130

== ENCOUNTER 2018-04-24 08:28 | Day surgery (SDC) | payer MEDICARE, OTHER ==
[~2018-04-24] VITALS: Ht 152.4 cm; Wt 54.4 kg
[2018-04-24 08:45] VITALS: BP 141/75
[2018-04-24] MEDS ORDERED: LACTATED RINGERS 1,000 ML IV PRN (08:46)
[2018-04-24] MEDS ORDERED: VANCOMYCIN INJECTION 1,000 MG in NS (IVPB) 250 ML IV ONE (09:00)
[2018-04-24] MEDS ORDERED: DEXAMETHASONE 10 MG/ML (DECADRON) 1 ML VIAL ONE (09:33)
[2018-04-24] MEDS ORDERED: LIDOCAINE PF 2% 5 ML (XYLOCAINE) VIAL ONE (09:33)
[2018-04-24] MEDS ORDERED: SEVOFLURANE (ULTANE) 15 ML INHAL SOLN ONE (09:33)
[2018-04-24] MEDS ORDERED: ONDANSETRON 4 MG/2 ML (SDV) Z0FRAN ONE (09:33)
[2018-04-24] MEDS ORDERED: proPOfol 200 MG/20 ML (DIPRIVAN) VIAL IV ONE (09:33)
[2018-04-24] MEDS ORDERED: fentaNYL INJECTION 100 MCG/2 ML AMP ONE (09:34)
[2018-04-24 09:37] LABS: CREATININE SERUM 1.03 MG/DL (0.60-1.30); POTASSIUM 3.5 MMOL/L (3.6-5.0)
[2018-04-24] MEDS ORDERED: BUP/EPI 0.5% 1:200,000 (SENSORCAINE) 30 ML VIAL ONE (10:18)
--- NOTE | 2018-04-24 10:20 | Progress Note-Pre Operative ---
Pre-Operative Progress Note H&P Reviewed The H&P was reviewed, patient examined and no changes noted. Date Seen by Provider: Apr 11, 2018 Time Seen by Provider: 11:00 Date H&P Reviewed: Apr 24, 2018 Time H&P Reviewed: 10:20 Pre-Operative Diagnosis: Skin lesion of scalp JUDY ESCOBAR MD Apr 24, 2018 10:20
[2018-04-24] MEDS ORDERED: ACHD5005 PO (11:37)
--- NOTE | 2018-04-24 11:39 | Discharge Inst-Simple/Standard ---
Discharge Inst-Standard Discharge Medications New, Converted or Re-Newed RX: RX on Chart Patient Instructions/Follow Up Plan of Care/Instructions/FU: f/u WITH MY NURSE IN 10 DAYS FOR SUTURE REMOVAL. TO RESUME PLAVIX ON SUNDAY Activity as Tolerated: Yes Discharge Diet: No Restrictions JUDY ESCOBAR MD Apr 24, 2018 11:38
--- NOTE | 2018-04-24 12:27 | Operative Report ---
Operative Report Date of Procedure/Surgery Apr 24, 2018 Surgeon (s) JUDY ESCOBAR MD Poly Operator (s): N/A Post-Operative Diagnosis Seborrheic keratosis with dysplasia Procedure Performed Excision with primary closure Description of Procedure Anesthesia Type: General Estimated blood loss (mL): Minimal Specimen(s) collected/removed Skin lesion from the scalp Description of the Procedure Indication for the procedure: This lady presented with a skin lesion over the posterior aspect of the scalp, requiring histologic confirmation. She was offered formal excision with frozen section. The potential for requiring a skin graft to cover the defect was discussed with her as well. Description of the procedure: She was placed supine on the operating table and general anesthesia induced. A gram of Ancef was administered intravenously as prophylaxis against wound infection. Preemptive analgesia was established using 0.5 percent Marcaine with epinephrine. An elliptical incision 4 cm in length by 3 cm in width was made and the lesion excised. It was oriented with silk sutures and sent for frozen section. The pathologist reported dysplasia without any obvious invasive carcinoma. Therefore, hemostasis was achieved using cautery and the defect approximated using 3-0 and 4-0 nylon sutures in an interrupted fashion. A nonadherent dressing was then applied. She tolerated the procedure well, was extubated in the room and taken to the recovery room in a stable condition. Findings of the Procedure See op report Allergies and Home Medications Allergies Coded Allergies: tramadol (Verified Allergy, Intermediate, RASH, Pt has received Lortab & Morphine in the past, 01/22/18) hydralazine (Verified Allergy, Unknown, 01/22/18) lidocaine (Verified Allergy, Unknown, 02/01/09) penicillin G (Verified Allergy, Unknown, 01/08/09) propoxyphene (Verified Allergy, Unknown, 01/08/09) Home Medications Acetaminophen 500 Mg Tablet, 1,000 MG PO Q6H PRN for PAIN-MILD, (Reported) Amlodipine Besylate 2.5 Mg Tablet, 2.5 MG PO DAILY, (Reported) Atorvastatin Calcium 40 Mg Tablet, 40 MG PO HS, (Reported) Clonazepam 0.5 Mg Tablet, 0.5 MG PO HS, (Reported) Clopidogrel Bisulfate 75 Mg Tablet, 75 MG PO DAILY, (Reported) Ferrous Sulfate 325 Mg Tablet, 325 MG PO DAILY, (Reported) Furosemide 20 Mg Tablet, 20 MG PO Q48H, (Reported) Hydrocodone Bit/Acetaminophen 1 Tab Tab, 1 TAB PO Q6H PRN for PAIN-MODERATE Prescribed by: JUDY ESCOBAR on 04/24/18 1137 Pantoprazole Sodium 40 Mg Tablet.dr, 40 MG PO DAILY, (Reported) Sertraline HCl 25 Mg Tablet, 25 MG PO DAILY, (Reported) Patient Home Medication List Home Medication List Reviewed: Yes JUDY ESCOBAR MD Apr 24, 2018 12:27
[2018-04-24 12:30] VITALS: BP 163/76
[2018-04-24 13:00] VITALS: BP 157/74
[2018-04-24 13:30] VITALS: BP 148/75
--- NOTE | 2018-04-24 14:11 | Anesthesia-General Post-Op ---
General Patient Condition Mental Status/LOC: Same as Preop Cardiovascular: Satisfactory Nausea/Vomiting: Absent Respiratory: Satisfactory Pain: Controlled Complications: Absent Post Op Complications Complications None Follow Up Care/Instructions Patient Instructions None needed. Anesthesia/Patient Condition Patient Condition Patient is doing well, no complaints, stable vital signs, no apparent adverse anesthesia problems. No complications reported per nursing. BRANNON PERES CRNA Apr 24, 2018 14:11
== END 2018-04-24 13:55 | disposition home or self-care (01) ==
LOC: SDC 08:28
PROVIDERS: ATTEND Surgery
DX: C44.42 Squamous cell carcinoma of skin of scalp and neck (principal); L82.1 Other seborrheic keratosis; Z11.2 Encounter for screening for other bacterial diseases; Z88.0 Allergy status to penicillin; Z88.6 Allergy status to analgesic agent; Z88.8 Allergy status to other drugs, medicaments and biological substances; Z79.899 Other long term (current) drug therapy; I10 Essential (primary) hypertension; I25.10 Atherosclerotic heart disease of native coronary artery without angina pectoris; E78.5 Hyperlipidemia, unspecified; I77.89 Other specified disorders of arteries and arterioles; K21.9 Gastro-esophageal reflux disease without esophagitis; Z87.891 Personal history of nicotine dependence; J44.9 Chronic obstructive pulmonary disease, unspecified; Z85.038 Personal history of other malignant neoplasm of large intestine; Z95.5 Presence of coronary angioplasty implant and graft
CPT/HCPCS: 36415; 80048; 87081

== ENCOUNTER → 2018-05-13 | Outpatient (CLI) | payer MEDICARE, OTHER ==
--- NOTE | 2018-05-13 16:04 | Diagnostic Imaging Report ---
INDICATION: Left rib pain. FINDINGS: Three views of the left ribs do not show any displaced fractures. There is no effusion or pneumothorax. IMPRESSION: Negative left ribs. Dictated by: Dictated on workstation # [id number]
--- NOTE | 2018-05-13 16:17 | Diagnostic Imaging Report ---
INDICATION: Cough. Lower back pain as well as pain along the posterior left rib area. TECHNIQUE: AP, Lateral and Spot imaging of the lumbar spine. CORRELATION STUDY: None. FINDINGS: There is rather significant rightward curvature of the lumbar spine with apex at L2 level. Alignment is otherwise relatively anatomic. Lumbar vertebral body heights appearing to be maintained. Marked disc space narrowing at essentially all levels of the lumbar spine. Endplate lipping is present. High-degree osseous narrowing of the neuroforamina is not suggested. Diffuse bony demineralization. Asymmetric sclerosis about the inferior aspect of the left SI joints. IMPRESSION: Rather significant rightward curvature with apex at L2 level. Marked disc space narrowing at essentially all levels of the lumbar spine. No definitive evidence for acute bony abnormality. Bony demineralization. Dictated by: Dictated on workstation # [id number]
== END ==
LOC: RAD 14:53
PROVIDERS: ATTEND Family Medicine
DX: M51.36 Other intervertebral disc degeneration, lumbar region (principal); R07.81 Pleurodynia
CPT/HCPCS: 71100; 72100

== ENCOUNTER 2018-06-11 07:54 | Outpatient (RCR) | payer MEDICARE, OTHER ==
[~2018-06-11 07:54] MED LIST changes: -AMLO2.5T3 PO; +AMLO2.5T4 PO; -AMLO5TAB7 PO; +AMLO5TAB9 PO; +LOSA50TA63 PO; -LOSA50TA7 PO; +METR-145 PO; -METR-197 PO
== END 2018-09-09 | disposition home or self-care (01) ==
LOC: ONC 07:54
PROVIDERS: ATTEND Internal Medicine Hematology & Oncology
DX: C18.0 Malignant neoplasm of cecum (principal); D50.0 Iron deficiency anemia secondary to blood loss (chronic); K22.11 Ulcer of esophagus with bleeding; I12.9 Hypertensive chronic kidney disease with stage 1 through stage 4 chronic kidney disease, or unspecified chronic kidney disease; N18.3 Chronic kidney disease, stage 3 (moderate); I25.10 Atherosclerotic heart disease of native coronary artery without angina pectoris; E78.5 Hyperlipidemia, unspecified; R53.83 Other fatigue; Z79.899 Other long term (current) drug therapy; Z79.02 Long term (current) use of antithrombotics/antiplatelets
CPT/HCPCS: 36415; 82306; 82378

== ENCOUNTER 2018-09-10 09:14 | Outpatient (RCR) | payer MEDICARE, OTHER ==
[2018-09-10 09:35] LABS: BASOPHILS % (AUTO) 0 % (0-10); EOSINOPHILS # (AUTO) 0.3 10^3/uL (0.0-0.3); EOSINOPHILS % (AUTO) 4 % (0-10); HEMATOCRIT 41 % (35-52); LYMPHOCYTES # (AUTO) 1.3 X 10^3 (1.0-4.0); LYMPHOCYTES % (AUTO) 18 % (12-44); MEAN CORPUSCULAR HEMOGLOBIN 27 PG (25-34); MEAN CORPUSCULAR HGB CONC 32 G/DL (32-36); MEAN CORPUSCULAR VOLUME 87 FL (80-99); MEAN PLATELET VOLUME 9.4 FL (7.4-10.4); MONOCYTES # (AUTO) 0.6 X 10^3 (0.0-1.0); MONOCYTES % (AUTO) 9 % (0-12); NEUTROPHILS # (AUTO) 5.2 X 10^3 (1.8-7.8); NEUTROPHILS % (AUTO) 70 % (42-75); PLATELET COUNT 259 10^3/uL (130-400); WHITE BLOOD COUNT 7.5 10^3/uL (4.3-11.0)
[2018-09-10 09:55] LABS: ALBUMIN 3.6 GM/DL (3.2-4.5); BILIRUBIN,TOTAL 0.5 MG/DL (0.1-1.0); CALCIUM 9.2 MG/DL (8.5-10.1); CREATININE SERUM 1.04 MG/DL (0.60-1.30); POTASSIUM 4.1 MMOL/L (3.6-5.0); TOTAL PROTEIN 7.7 GM/DL (6.4-8.2)
[2018-10-08] MEDS ORDERED: CLOP75TA69 PO (12:18)
[2018-10-08] MEDS ORDERED: AMLO5TAB9 PO (12:18)
== END 2018-12-09 | disposition home or self-care (01) ==
LOC: ONC 09:14
PROVIDERS: ATTEND Internal Medicine Hematology & Oncology
DX: C18.0 Malignant neoplasm of cecum (principal); D50.0 Iron deficiency anemia secondary to blood loss (chronic); K22.11 Ulcer of esophagus with bleeding; I12.9 Hypertensive chronic kidney disease with stage 1 through stage 4 chronic kidney disease, or unspecified chronic kidney disease; N18.3 Chronic kidney disease, stage 3 (moderate); I25.10 Atherosclerotic heart disease of native coronary artery without angina pectoris; E78.5 Hyperlipidemia, unspecified; R53.83 Other fatigue; I25.2 Old myocardial infarction; Z85.828 Personal history of other malignant neoplasm of skin; Z79.899 Other long term (current) drug therapy; Z79.02 Long term (current) use of antithrombotics/antiplatelets; Z79.82 Long term (current) use of aspirin; Z95.5 Presence of coronary angioplasty implant and graft
CPT/HCPCS: 36415; 80053; 82306; 82378; 82728; 85025; 99213

== ENCOUNTER 2018-10-08 06:18 | Outpatient (CLI) | payer MEDICARE, OTHER ==
[~2018-10-08] VITALS: Ht 152.4 cm; Wt 54.4 kg
[2018-10-08] MEDS ORDERED: AMLO5TAB9 PO (12:18)
[2018-10-08] MEDS ORDERED: CLOP75TA69 PO (12:18)
== END 2018-10-08 12:23 | disposition home or self-care (01) ==
LOC: PREOP 06:18
PROVIDERS: ATTEND Surgery
DX: Z01.818 Encounter for other preprocedural examination (principal)

== ENCOUNTER 2018-10-15 09:12 | Day surgery (SDC) | payer MEDICARE, OTHER ==
[~2018-10-15] VITALS: Ht 152.4 cm; Wt 54.4 kg
[2018-10-15] MEDS ORDERED: LACTATED RINGERS 1,000 ML IV ONE (09:15)
[2018-10-15] MEDS ORDERED: LACTATED RINGERS 1,000 ML IV STA (09:45)
[2018-10-15 09:53] VITALS: BP 128/67
--- NOTE | 2018-10-15 10:22 | Progress Note-Pre Operative ---
Pre-Operative Progress Note H&P Reviewed The H&P was reviewed, patient examined and no changes noted. Date Seen by Provider: Oct 15, 2018 Time Seen by Provider: : Date H&P Reviewed: Oct 15, 2018 Time H&P Reviewed: : Pre-Operative Diagnosis: history of colon cancer KEON HERNANDEZ DO Oct 15, 2018 10:22
[2018-10-15] MEDS ORDERED: proPOfol 200 MG/20 ML (DIPRIVAN) VIAL IV ONE (10:46)
[2018-10-15 11:25] VITALS: BP 152/68
[2018-10-15 11:55] VITALS: BP 176/84
[2018-10-15 12:10] VITALS: BP 176/84
--- NOTE | 2018-10-15 13:11 | Progress Note-Post Operative ---
Post-Operative Progess Note Surgeon (s)/Executive Director Global Brand Marketing (s) Surgeon KEON HERNANDEZ DO Executive Director Global Brand Marketing: na Pre-Operative Diagnosis history of colon cancer Post-Operative Diagnosis normal colon Procedure & Operative Findings Date of Procedure 10/15/18 Procedure Performed/Findings colonoscopy Anesthesia Type per classroom coordinator Estimated Blood Loss Estimated blood loss (mL): na Specimens/Packing Specimens Removed none KEON HERNANDEZ DO Oct 15, 2018 13:11
--- NOTE | 2018-10-15 14:06 | Anesthesia-General Post-Op ---
MAC Patient Condition Mental Status/LOC: Same as Preop Cardiovascular: Satisfactory Nausea/Vomiting: Absent Respiratory: Satisfactory Pain: Controlled Complications: Absent Post Op Complications Complications None Follow Up Care/Instructions Patient Instructions None needed. Anesthesiology Discharge Order Discharge Order Patient was seen after the procedure and she was doing well, no complaints, stable vital signs, no apparent adverse anesthesia problems. CASI CARMONA DO Oct 15, 2018 14:06
--- NOTE | 2018-10-15 19:50 | OPERATIVE REPORT ---
DATE OF SERVICE: 10/15/2018 PREOPERATIVE DIAGNOSIS: History of colon cancer. POSTOPERATIVE DIAGNOSIS: Normal colon. PROCEDURE: Colonoscopy. SURGEON: Keon Olivera DO ANESTHESIA: Per SAW MAKER. ESTIMATED BLOOD LOSS: None. COMPLICATIONS: None. INDICATIONS: The patient is an 83-year-old female with history of colon cancer. She understands risks and benefits of procedure and wished to proceed with procedure. Consent was signed in the chart. DESCRIPTION OF PROCEDURE: The patient was taken to the endoscopy suite, placed in left lateral recumbent position. Timeout was performed. Digital rectal exam was performed. There were no palpable polyps, mass or ulcerations. The scope was inserted in the rectum and advanced all the way to the ileocolonic anastomosis. This was intact. No polyps, masses or ulcerations. Prep was adequate. Scope was then slowly retracted back. There were no polyps, mass or ulcerations within the anastomosis to the transverse, descending and sigmoid colon. Once in the rectum, scope was retroflexed noting no other pathology. Scope was returned to its normal position, slowly withdrawn until completely removed. The patient tolerated procedure well without any complications. She was taken to recovery room in stable condition. RECOMMENDATIONS: The patient will need repeat colonoscopy in 3 to 5 years due to history of colon cancer. If she has any issues before then, will be seen at that time. Job ID: [id number] DocumentID: [id number] Dictated Date: 10/15/2018 13:10:43 Kiln Puller Date: 10/15/2018 19:49:42 Dictated By: KEON OLIVERA DO
== END 2018-10-15 12:10 | disposition home or self-care (01) ==
LOC: ENDO 09:12
PROVIDERS: ATTEND Surgery
DX: Z08 Encounter for follow-up examination after completed treatment for malignant neoplasm (principal); Z85.038 Personal history of other malignant neoplasm of large intestine; Z79.02 Long term (current) use of antithrombotics/antiplatelets; Z88.0 Allergy status to penicillin; Z88.6 Allergy status to analgesic agent; Z79.899 Other long term (current) drug therapy; I10 Essential (primary) hypertension; I25.10 Atherosclerotic heart disease of native coronary artery without angina pectoris; E78.5 Hyperlipidemia, unspecified; I65.29 Occlusion and stenosis of unspecified carotid artery; K21.9 Gastro-esophageal reflux disease without esophagitis; N18.3 Chronic kidney disease, stage 3 (moderate); I73.9 Peripheral vascular disease, unspecified; Z87.891 Personal history of nicotine dependence; F41.9 Anxiety disorder, unspecified; F32.9 Major depressive disorder, single episode, unspecified; G62.9 Polyneuropathy, unspecified; K44.9 Diaphragmatic hernia without obstruction or gangrene

== ENCOUNTER → 2018-12-18 | Outpatient (CLI) | payer MEDICARE, OTHER | LOC: LAB 12:08 | PROVIDERS: ATTEND Family Medicine | DX: R07.9 Chest pain, unspecified (principal) | CPT/HCPCS: 36415; 84484 ==

== ENCOUNTER → 2019-05-21 | Outpatient (CLI) | payer MEDICARE, OTHER ==
[~2019-05-21] MED LIST changes: -CLON0.5T13 PO; +CLON0.5T4 PO; -LOPE-145 PO; +LOPE-175 PO
== END ==
LOC: LAB 12:10
PROVIDERS: ATTEND Family Medicine
DX: C18.9 Malignant neoplasm of colon, unspecified (principal)
CPT/HCPCS: 36415; 82378

== ENCOUNTER 2019-06-03 09:41 | Outpatient (RCR) | payer MEDICARE, OTHER ==
[2019-06-03 10:01] LABS: BASOPHILS % (AUTO) 0 % (0-10); EOSINOPHILS # (AUTO) 0.4 10^3/uL (0.0-0.3); EOSINOPHILS % (AUTO) 4 % (0-10); HEMATOCRIT 41 % (35-52); HEMOGLOBIN 13.7 G/DL (11.5-16.0); LYMPHOCYTES # (AUTO) 1.4 X 10^3 (1.0-4.0); LYMPHOCYTES % (AUTO) 16 % (12-44); MEAN CORPUSCULAR HEMOGLOBIN 30 PG (25-34); MEAN CORPUSCULAR HGB CONC 33 G/DL (32-36); MEAN CORPUSCULAR VOLUME 89 FL (80-99); MEAN PLATELET VOLUME 9.2 FL (7.4-10.4); MONOCYTES # (AUTO) 0.6 X 10^3 (0.0-1.0); MONOCYTES % (AUTO) 7 % (0-12); NEUTROPHILS # (AUTO) 6.1 X 10^3 (1.8-7.8); NEUTROPHILS % (AUTO) 72 % (42-75); PLATELET COUNT 238 10^3/uL (130-400); RED CELL DISTRIBUTION WIDTH 12.9 % (10.0-14.5); WHITE BLOOD COUNT 8.5 10^3/uL (4.3-11.0)
[2019-06-03 10:18] LABS: ALBUMIN 3.8 GM/DL (3.2-4.5); BILIRUBIN,TOTAL 0.6 MG/DL (0.1-1.0); CALCIUM 9.2 MG/DL (8.5-10.1); CREATININE SERUM 1.21 MG/DL (0.60-1.30); POTASSIUM 3.7 MMOL/L (3.6-5.0); TOTAL PROTEIN 7.8 GM/DL (6.4-8.2)
== END 2019-06-15 | disposition home or self-care (01) ==
LOC: ONC 09:41
PROVIDERS: ATTEND Internal Medicine Hematology & Oncology
DX: C18.0 Malignant neoplasm of cecum (principal); N18.3 Chronic kidney disease, stage 3 (moderate); I25.10 Atherosclerotic heart disease of native coronary artery without angina pectoris; I65.29 Occlusion and stenosis of unspecified carotid artery; I25.2 Old myocardial infarction; E55.9 Vitamin D deficiency, unspecified; Z79.899 Other long term (current) drug therapy; Z90.49 Acquired absence of other specified parts of digestive tract
CPT/HCPCS: 80053; 82378; 85025; 99213

== ENCOUNTER → 2019-06-10 | Outpatient (CLI) | payer MEDICARE, OTHER ==
--- NOTE | 2019-06-10 15:06 | Diagnostic Imaging Report ---
INDICATION: Colon carcinoma. Patient has elevated CEA levels. Study is performed to evaluate for recurrence. TECHNIQUE: Serum blood glucose level at the time of injection was 83 mg/dL. The patient was administered 13.1 mCi of F-18 FDG intravenously in the right antecubital location, and PET imaging was performed from the top of the skull to mid thighs. COMPARISON: No prior PET/CT study is available for comparison. FINDINGS: There is symmetric activity throughout the brain. There appears to be physiologic activity within the soft tissues of the neck. There is an area of uptake in the anterior aspect of the right upper lobe with SUV values of approximately 5. There is also some mild uptake involving some ill-defined density in the right lower lobe posteriorly. These have the appearance of infiltrates on the accompanying CT. A discrete mass is not seen. There is some mild uptake within bilateral hilar and mediastinal nodes which could be reactive. Abdomen and pelvis demonstrate physiologic activity within the GI and tracts. No suspicious hypermetabolism is seen. No hypermetabolic lymphadenopathy is detected. Scoliotic curvature to the thoracolumbar spine is noted. IMPRESSION: There are areas of uptake in the right upper lobe and right lower lobe. This has the appearance of infiltrates on CT and may be owing to pneumonia. There is some probable reactive lymphadenopathy in the mediastinum and martell. Follow-up CT chest after course of therapy with contrast would be recommended to confirm stability and/or clearing. The patient does have a large hiatal hernia. No definite suspicious foci of hypermetabolism are identified to suggest colon cancer recurrence. Dictated by: Dictated on workstation # [id number]
== END ==
LOC: RAD 11:25
PROVIDERS: ATTEND Internal Medicine Hematology & Oncology
DX: C18.0 Malignant neoplasm of cecum (principal); R97.0 Elevated carcinoembryonic antigen [CEA]

== ENCOUNTER 2019-06-19 09:44 | Outpatient (RCR) | payer MEDICARE, OTHER | END 2019-09-17 | disposition home or self-care (01) | LOC: ONC 09:44 | PROVIDERS: ATTEND Internal Medicine Hematology & Oncology | DX: C18.0 Malignant neoplasm of cecum (principal); N18.3 Chronic kidney disease, stage 3 (moderate); I25.10 Atherosclerotic heart disease of native coronary artery without angina pectoris; I65.29 Occlusion and stenosis of unspecified carotid artery; I25.2 Old myocardial infarction; E55.9 Vitamin D deficiency, unspecified; K44.9 Diaphragmatic hernia without obstruction or gangrene; K22.2 Esophageal obstruction; I12.9 Hypertensive chronic kidney disease with stage 1 through stage 4 chronic kidney disease, or unspecified chronic kidney disease; E78.5 Hyperlipidemia, unspecified; Z87.19 Personal history of other diseases of the digestive system; Z95.5 Presence of coronary angioplasty implant and graft; Z79.899 Other long term (current) drug therapy; Z90.49 Acquired absence of other specified parts of digestive tract | CPT/HCPCS: 99213 ==

== ENCOUNTER → 2019-10-06 | Outpatient (CLI) | payer MEDICARE, OTHER ==
[~2019-10-06] MED LIST changes: +CATHETER FLUSH 10 ML SYR IV PRN; +HOLD METFORMIN - RECEIVED CONTRAST 20 ML VIAL IV SCH; +IOHEXOL 350 MG/ML 100 ML (OMNIPAQUE 350) VIAL IV ONE; +NS 100 ML (IVPB) BAG IV ONE
--- NOTE | 2019-10-06 12:35 | Diagnostic Imaging Report ---
PROCEDURE: CT chest with contrast only. TECHNIQUE: Multiple contiguous axial images were obtained through the chest after administration of intravenous contrast. Auto Exposure Controls were utilized during the CT exam to meet ALARA standards for radiation dose reduction. INDICATION: Lung mass, carcinoma of the cecum. FINDINGS: The PET/CT exam performed on 06/10/2019 noted areas of uptake in the right upper lobe and right lower lobe. These findings are felt to more likely due to pneumonia than to neoplasm. On this exam, the alveolar/interstitial infiltrate involving the right upper lobe and right lung base seen on the previous PET/CT exam have diminished. However, there is now a diffuse groundglass density throughout the right upper lobe. This appearance is nonspecific but worrisome for recurrent pneumonia/atelectasis. Covid-19 should certainly be considered. The lungs are otherwise generally clear. As noted on the prior study, there are emphysematous changes involving both lungs. The heart is enlarged and there are extensive coronary calcifications evident. The aorta is not abnormally dilated and there is no sign of a dissection. There is no definite defect within the pulmonary arteries to indicate a pulmonary embolus either. The mediastinal and hilar adenopathy noted on the prior exam does not seem to have changed significantly. The thyroid gland is generally unremarkable. The large hiatal hernia seen on the prior study is again evident and no different. This images through the upper abdomen failed to show any sign of an acute abnormality. The gallbladder is surgically absent. There is no obvious breast mass. IMPRESSION: 1. There are mixed results. The alveolar/interstitial infiltrates involving the right lung seen previously have essentially resolved. However, since the previous study, a diffuse groundglass density has developed throughout the right upper lobe. This finding is worrisome for an inflammatory/infectious process and Covid-19 should certainly be considered. 2. There is no acute cardiopulmonary abnormality noted otherwise. 3. There are emphysematous changes involving both lungs. 4. There is cardiomegaly and coronary artery disease. These results were discussed with VLAD Anderson. Dictated by: Dictated on workstation # [id number]
== END ==
LOC: RAD 10:10
PROVIDERS: ATTEND Internal Medicine Hematology & Oncology
DX: C18.0 Malignant neoplasm of cecum (principal); R91.8 Other nonspecific abnormal finding of lung field; J43.9 Emphysema, unspecified; I51.7 Cardiomegaly; I10 Essential (primary) hypertension; R97.0 Elevated carcinoembryonic antigen [CEA]; R94.2 Abnormal results of pulmonary function studies
CPT/HCPCS: 71260

== ENCOUNTER → 2019-10-07 | Outpatient (CLI) | payer MEDICARE, OTHER ==
[~2019-10-07] MED LIST changes: -CATHETER FLUSH 10 ML SYR IV PRN; -HOLD METFORMIN - RECEIVED CONTRAST 20 ML VIAL IV SCH; -IOHEXOL 350 MG/ML 100 ML (OMNIPAQUE 350) VIAL IV ONE; -NS 100 ML (IVPB) BAG IV ONE
== END ==
LOC: LABNPT 09:15
PROVIDERS: ATTEND Nurse Practitioner Adult Health
DX: R91.8 Other nonspecific abnormal finding of lung field (principal)
CPT/HCPCS: 87635

== ENCOUNTER 2019-10-15 09:41 | Outpatient (RCR) | payer MEDICARE, OTHER ==
[2019-10-06 10:12] LABS: BASOPHILS % (AUTO) 0 % (0-10); EOSINOPHILS # (AUTO) 0.3 10^3/uL (0.0-0.3); EOSINOPHILS % (AUTO) 3 % (0-10); HEMATOCRIT 41 % (35-52); HEMOGLOBIN 13.7 G/DL (11.5-16.0); LYMPHOCYTES # (AUTO) 1.3 X 10^3 (1.0-4.0); LYMPHOCYTES % (AUTO) 12 % (12-44); MEAN CORPUSCULAR HEMOGLOBIN 28 PG (25-34); MEAN CORPUSCULAR HGB CONC 33 G/DL (32-36); MEAN CORPUSCULAR VOLUME 85 FL (80-99); MEAN PLATELET VOLUME 8.9 FL (7.4-10.4); MONOCYTES # (AUTO) 0.9 X 10^3 (0.0-1.0); MONOCYTES % (AUTO) 8 % (0-12); NEUTROPHILS # (AUTO) 8.3 X 10^3 (1.8-7.8); NEUTROPHILS % (AUTO) 77 % (42-75); PLATELET COUNT 381 10^3/uL (130-400); RED CELL DISTRIBUTION WIDTH 12.9 % (10.0-14.5); WHITE BLOOD COUNT 10.9 10^3/uL (4.3-11.0)
[2019-10-06 10:32] LABS: ALBUMIN 3.8 GM/DL (3.2-4.5); BILIRUBIN,TOTAL 0.5 MG/DL (0.1-1.0); CALCIUM 9.9 MG/DL (8.5-10.1); CREATININE SERUM 1.42 MG/DL (0.60-1.30); POTASSIUM 3.9 MMOL/L (3.6-5.0); TOTAL PROTEIN 9.4 GM/DL (6.4-8.2)
== END 2020-01-04 | disposition home or self-care (01) ==
LOC: ONC 09:41
PROVIDERS: ATTEND Internal Medicine Hematology & Oncology
DX: C18.0 Malignant neoplasm of cecum (principal); N18.3 Chronic kidney disease, stage 3 (moderate); I25.10 Atherosclerotic heart disease of native coronary artery without angina pectoris; I65.29 Occlusion and stenosis of unspecified carotid artery; I25.2 Old myocardial infarction; E55.9 Vitamin D deficiency, unspecified; K44.9 Diaphragmatic hernia without obstruction or gangrene; K22.2 Esophageal obstruction; I12.9 Hypertensive chronic kidney disease with stage 1 through stage 4 chronic kidney disease, or unspecified chronic kidney disease; E78.5 Hyperlipidemia, unspecified; Z87.19 Personal history of other diseases of the digestive system; Z95.5 Presence of coronary angioplasty implant and graft; Z79.899 Other long term (current) drug therapy; Z90.49 Acquired absence of other specified parts of digestive tract
CPT/HCPCS: 80053; 82378; 85025; 99213

== ENCOUNTER → 2020-03-10 | Outpatient (CLI) | payer MEDICARE, OTHER ==
[~2020-03-10] MED LIST changes: +AMLO-250 PO; -AMLO5TAB9 PO; +ASPI-1238 PO; -ASPI-983 PO; -PANT40TA3 PO; +PANT40TA52 PO
[2020-03-10 10:11] LABS: BASOPHILS # (AUTO) 0.1 10^3/uL (0.0-0.1); BASOPHILS % (AUTO) 1 % (0-10); EOSINOPHILS # (AUTO) 0.4 10^3/uL (0.0-0.3); EOSINOPHILS % (AUTO) 4 % (0-10); HEMATOCRIT 42 % (35-52); HEMOGLOBIN 13.6 g/dL (11.5-16.0); LYMPHOCYTES # (AUTO) 1.9 10^3/uL (1.0-4.0); LYMPHOCYTES % (AUTO) 21 % (12-44); MEAN CORPUSCULAR HEMOGLOBIN 29 pg (25-34); MEAN CORPUSCULAR HGB CONC 33 g/dL (32-36); MEAN CORPUSCULAR VOLUME 88 fL (80-99); MEAN PLATELET VOLUME 9.2 fL (9.0-12.2); MONOCYTES # (AUTO) 0.6 10^3/uL (0.0-1.0); MONOCYTES % (AUTO) 7 % (0-12); NEUTROPHILS % (AUTO) 67 % (42-75); PLATELET COUNT 276 10^3/uL (130-400)
[2020-03-10 10:30] LABS: ALBUMIN 3.9 GM/DL (3.2-4.5); BILIRUBIN,TOTAL 0.7 MG/DL (0.1-1.0); CALCIUM 9.1 MG/DL (8.5-10.1); CREATININE SERUM 1.09 MG/DL (0.60-1.30); POTASSIUM 3.9 MMOL/L (3.6-5.0); TOTAL PROTEIN 8.2 GM/DL (6.4-8.2)
== END ==
LOC: EDSTATUS 01-05 10:00 → ONC 10:01
PROVIDERS: ATTEND Internal Medicine Hematology & Oncology
DX: C18.0 Malignant neoplasm of cecum (principal)
CPT/HCPCS: 80053; 82378; 85025; G0463; 99213

== ENCOUNTER → 2020-08-27 | Outpatient (CLI) | payer MEDICARE, OTHER ==
[~2020-08-27] VITALS: Ht 152 cm; Wt 56.0 kg
[~2020-08-27] MED LIST changes: +REGADENOSON 0.4 MG/5 ML SYR (LEXISCAN) IV ONE; +SERT-412 PO
[2020-08-27] MEDS: CATHETER FLUSH 10 ML SYR IV PRN ×2 (07:15→08:43)
[2020-08-27 08:42] VITALS: BP 134/66
--- NOTE | 2020-08-30 11:43 | STRESS TEST ---
DATE OF SERVICE: 08/27/2020 RESTING AND POST REGADENOSON TECHNETIUM-99M TETROFOSMIN SPECT CT IMAGING ORDERING PHYSICIAN: Gerri Reece APRN PRIMARY PHYSICIAN: Dr. Escobar. CLINICAL DIAGNOSIS: Coronary artery disease. Baseline images were carried out after injection of 10.59 mCi of technetium-99m Tetrofosmin. This was followed by 0.4 mg Regadenoson and 31.7 mCi of technetium-99m Tetrofosmin for stress imaging. The electrocardiogram showed sinus rhythm with left bundle branch block. The electrocardiogram did not change significantly with the Regadenoson infusion. The patient tolerated the procedure well. Review of images at rest and following stress does not indicate any significant perfusion defects consistent with significant myocardial ischemia or infarction. Gated images show normal global left ventricular systolic function with normal regional wall motion. Left ventricular ejection fraction is calculated to be 77%. Left ventricular end diastolic volume is 23 mL. TID is absent (0.93). CONCLUSIONS: 1. No evidence of any significant myocardial ischemia or infarction on this study. 2. Normal regional wall motion. 3. Normal to hyperdynamic left ventricular systolic function with a calculated ejection fraction of 77%. Job ID: [id number] DocumentID: [id number] Dictated Date: 08/30/2020 09:56:46 Business Office Specialist Date: 08/30/2020 11:42:55 Dictated By: RADHIKA DAY MD, MA, FACP, FACC,
== END ==
LOC: CARD 08:00
PROVIDERS: ATTEND Nurse Practitioner Family
DX: I25.10 Atherosclerotic heart disease of native coronary artery without angina pectoris (principal)
CPT/HCPCS: 78452; 93017; A9502

== ENCOUNTER → 2020-09-13 | Outpatient (CLI) | payer MEDICARE, OTHER ==
[~2020-09-13] MED LIST changes: -REGADENOSON 0.4 MG/5 ML SYR (LEXISCAN) IV ONE
--- NOTE | 2020-09-13 17:00 | Diagnostic Imaging Report ---
INDICATION: Cough and congestion. EXAMINATION: PA and lateral chest. FINDINGS: There appears to be some chronic scarring in the right apex. There is a sliding hiatal hernia. There are no effusions or pneumothoraces. IMPRESSION: Chronic appearing infiltrates/scarring in the right upper lobe. This was present on the previous CT from 10/06/2019 and has not appreciably changed. Dictated by: Dictated on workstation # [id number]
== END ==
LOC: RAD 12:26
PROVIDERS: ATTEND Family Medicine
DX: R05 Cough (principal); R09.81 Nasal congestion
CPT/HCPCS: 71046

== ENCOUNTER → 2020-09-13 | Outpatient (CLI) | payer MEDICARE, OTHER ==
[2020-09-13 09:45] LABS: BASOPHILS % (AUTO) 1 % (0-10); EOSINOPHILS # (AUTO) 0.3 10^3/uL (0.0-0.3); EOSINOPHILS % (AUTO) 5 % (0-10); HEMATOCRIT 43 % (35-52); HEMOGLOBIN 13.8 g/dL (11.5-16.0); LYMPHOCYTES # (AUTO) 1.6 10^3/uL (1.0-4.0); LYMPHOCYTES % (AUTO) 26 % (12-44); MEAN CORPUSCULAR HEMOGLOBIN 29 pg (25-34); MEAN CORPUSCULAR HGB CONC 32 g/dL (32-36); MEAN CORPUSCULAR VOLUME 90 fL (80-99); MONOCYTES # (AUTO) 0.7 10^3/uL (0.0-1.0); MONOCYTES % (AUTO) 10 % (0-12); NEUTROPHILS # (AUTO) 3.7 10^3/uL (1.8-7.8); NEUTROPHILS % (AUTO) 58 % (42-75); PLATELET COUNT 221 10^3/uL (130-400); WHITE BLOOD COUNT 6.4 10^3/uL (4.3-11.0)
[2020-09-13 10:10] LABS: ALBUMIN 3.7 GM/DL (3.2-4.5); BILIRUBIN,TOTAL 0.6 MG/DL (0.1-1.0); CALCIUM 8.9 MG/DL (8.5-10.1); CREATININE SERUM 1.28 MG/DL (0.60-1.30); POTASSIUM 3.7 MMOL/L (3.6-5.0); TOTAL PROTEIN 8.3 GM/DL (6.4-8.2)
== END ==
LOC: ONC 09:30
PROVIDERS: ATTEND Internal Medicine Hematology & Oncology
DX: C18.0 Malignant neoplasm of cecum (principal); I25.10 Atherosclerotic heart disease of native coronary artery without angina pectoris; I25.2 Old myocardial infarction; E55.9 Vitamin D deficiency, unspecified; K44.9 Diaphragmatic hernia without obstruction or gangrene; I12.9 Hypertensive chronic kidney disease with stage 1 through stage 4 chronic kidney disease, or unspecified chronic kidney disease; N18.30 Chronic kidney disease, stage 3 unspecified; K21.9 Gastro-esophageal reflux disease without esophagitis; E78.5 Hyperlipidemia, unspecified; R97.0 Elevated carcinoembryonic antigen [CEA]; Z90.49 Acquired absence of other specified parts of digestive tract; Z98.890 Other specified postprocedural states; Z87.19 Personal history of other diseases of the digestive system
CPT/HCPCS: 80053; 82378; 85025; G0463; 99213

== ENCOUNTER → 2020-11-11 | Outpatient (CLI) | payer MEDICARE, OTHER | LOC: LABNPT 06:37 | PROVIDERS: ATTEND Family Medicine | DX: J98.8 Other specified respiratory disorders (principal); Z20.822 Contact with and (suspected) exposure to COVID-19 | CPT/HCPCS: 87636 ==

== ENCOUNTER → 2022-08-09 | Outpatient (CLI) | payer MEDICARE, OTHER ==
[~2022-08-09] MED LIST changes: -BETH25TA PO; +BETH25TA2 PO; +CLOP-31 PO; -CLOP75TA69 PO
== END ==
LOC: CARD 15:00
PROVIDERS: ATTEND Nurse Practitioner Family
DX: I08.3 Combined rheumatic disorders of mitral, aortic and tricuspid valves (principal)
CPT/HCPCS: 93306

== ENCOUNTER → 2022-09-19 | Outpatient (CLI) | payer MEDICARE, OTHER ==
[~2022-09-19] MED LIST changes: +CATHETER FLUSH 10 ML SYR IVP PRN; +REGADENOSON 0.4 MG/5 ML SYR (LEXISCAN) IV ONE
[2022-09-19 09:06] VITALS: BP 145/85
--- NOTE | 2022-09-20 12:05 | STRESS TEST ---
DATE OF SERVICE: 09/19/2022 RESTING AND POST REGADENOSON TECHNETIUM-99M TETROFOSMIN SPECT CT IMAGING Baseline images were carried out after injection of 10.75 mCi of technetium-99m tetrofosmin. This was followed by 0.4 mg regadenoson and 33 mCi of technetium-99m tetrofosmin for stress imaging. The electrocardiogram showed sinus rhythm with left bundle branch block. The electrocardiogram did not change significantly with regadenoson infusion. She tolerated the procedure well. Review of images at rest and following stress does not indicate any distinct perfusion defects consistent with significant myocardial ischemia or infarction. Gated images showed normal global left ventricular systolic function, left ventricular ejection fraction is calculated to be 66%. CONCLUSIONS: 1. No evidence of any significant myocardial ischemia or infarction. 2. Normal global left ventricular systolic function with a calculated ejection fraction 66%. 3. No significant regional wall motion abnormalities seen on this study. Job ID: [id number] DocumentID: [id number] Dictated Date: 09/20/2022 09:31:09 Jig Grinder Date: 09/20/2022 12:03:00 Dictated By: RADHIKA DAY MD; MA; FACP; FACC;
== END ==
LOC: CARD 07:30
PROVIDERS: ATTEND Nurse Practitioner Family
DX: I25.10 Atherosclerotic heart disease of native coronary artery without angina pectoris (principal); I35.8 Other nonrheumatic aortic valve disorders
CPT/HCPCS: 78452; 93017; A9502